=== PATIENT | female | born 1955 | race Caucasian/White ===

== ENCOUNTER 2018-12-30 15:04 | Outpatient (CLI) | payer OTHER | END 2018-12-30 15:05 | disposition critical access hospital (66) | LOC: EMS 15:04 | PROVIDERS: ATTEND Surgery | DX: R10.10 Upper abdominal pain, unspecified (principal) | CPT/HCPCS: A0425; A0427 ==

== ENCOUNTER 2018-12-30 15:49 | Inpatient (IN) | payer OTHER ==
[2018-12-30] MEDS ORDERED: ONDANSETRON 4 MG/2 ML VIAL IVP STA ×2 (16:02→17:28)
[2018-12-30 16:32] LABS: BASOPHILS % (AUTO) 0.4 %; EOSINOPHILS # (AUTO) 0.1 10^3/uL (0.0-0.7); EOSINOPHILS % (AUTO) 0.9 %; HGB - HEMOGLOBIN 13.9 g/dL (12.0-16.0); LYMPHOCYTES # (AUTO) 0.6 10^3/uL (1.5-3.5); LYMPHOCYTES % (AUTO) 8.5 %; MEAN CORPUSCULAR HEMOGLOBIN 30.3 pg (27.0-31.0); MEAN CORPUSCULAR HGB CONC 33.2 g/dL (32.0-36.0); MEAN CORPUSCULAR VOLUME 91.3 fL (81.0-99.0); MONOCYTES # (AUTO) 0.1 10^3/uL (0.0-1.0); MONOCYTES % (AUTO) 1.2 %; NEUTROPHILS # (AUTO) 6.2 10^3/uL (1.5-6.6); NEUTROPHILS % (AUTO) 88.7 %; PLT - PLATELET COUNT 244 10^3/uL (130-450); RED BLOOD COUNT 4.59 10^6/uL (4.20-5.40); RED CELL DISTRIBUTION WIDTH 13.5 % (12.0-15.0)
--- NOTE | 2018-12-30 16:42 | XRAY Report ---
Reason: chest pain Procedure Date: 12/30/2018 Accession Number: [id number] / [id number] Procedure: XR - Chest 1 View X-Ray CPT Code: 99546 FULL RESULT: EXAM: CHEST RADIOGRAPHY EXAM DATE: 12/30/2018 04:20 PM. CLINICAL HISTORY: Chest pain. COMPARISON: None. TECHNIQUE: 1 view. FINDINGS: Lungs/Pleura: No focal opacities evident. No pleural effusion. No pneumothorax. Mediastinum: Within exam limitations, the cardiomediastinal contour is normal. Other: None. IMPRESSION: No acute intrathoracic plain film abnormality. RADIA
[2018-12-30 16:45] LABS: ALBUMIN 3.8 g/dL (3.2-5.5); ALBUMIN/GLOBULIN RATIO 1.3 (1.0-2.2); BILIRUBIN,TOTAL 1.7 mg/dL (0.2-1.0); CALCIUM 8.8 mg/dL (8.5-10.3); CREATININE 0.9 mg/dL (0.4-1.0); TOTAL PROTEIN 6.8 g/dL (6.7-8.2)
--- NOTE | 2018-12-30 17:19 | ED Physician Documentation ---
PD HPI CHEST PAIN - Stated complaint Stated Complaint: ABD PX - Chief complaint Chief Complaint: Abd Pain - History obtained from History obtained from: Patient - History of Present Illness Timing - onset: Today Timing - onset during: Light activity Timing - duration: Hours Timing - details: Abrupt onset, Still present Quality: Sharp, Pain Location: Substernal, Epigastric Radiation: Back Improved by: Rest Associated symptoms: Nausea, Vomiting Similar symptoms before: Has not had sx before Recently seen: Not recently seen - Additional information Additional information: 63-year-old female with a history of hiatal hernia has developed acute chest pain today radiating to her back and in the epigastrium. Review of Systems Constitutional: reports: Chills. denies: Fever Eyes: denies: Decreased vision Ears: denies: Ear pain Nose: denies: Congestion Throat: denies: Sore throat Cardiac: reports: Chest pain / pressure. denies: Palpitations, Pedal edema, Calf pain Respiratory: denies: Dyspnea, Cough GI: reports: Abdominal Pain, Nausea, Vomiting : denies: Dysuria, Frequency PD PAST MEDICAL HISTORY - Past Medical History Past Medical History: Yes Cardiovascular: Hypertension - Past Surgical History Past Surgical History: Yes General: Hiatal hernia repair - Allergies Allergies/Adverse Reactions: Allergies Allergy/AdvReac Type Severity Reaction Status Date / Time metronidazole [From Flagyl] Allergy Anaphylaxis Verified 12/30/18 16:01 Penicillins Allergy Anaphylaxis Verified 12/30/18 16:01 - Social History Does the pt smoke?: No Smoking Status: Never smoker Does the pt drink ETOH?: No Does the pt have substance abuse?: No - Immunizations Immunizations are current?: Yes - POLST Patient has POLST: No PD ED PE NORMAL - Vitals Vital signs reviewed: Yes (hypertensive mild ) - General General: Alert and oriented X 3, Well developed/nourished - HEENT HEENT: Atraumatic, PERRL, EOMI - Neck Neck: Supple, no meningeal sign - Cardiac Cardiac: RRR, No murmur - Respiratory Respiratory: No respiratory distress, Clear bilaterally - Abdomen Abdomen: Soft, Other (RUQ tenderness to palpation and epigastric tenderness. ) - Back Back: No CVA TTP, No spinal TTP - Derm Derm: Normal color, Warm and dry, No rash - Extremities Extremities: No deformity, No edema - Neuro Neuro: Alert and oriented X 3, zoning technician 2-12 intact, No motor deficit, No sensory deficit, Normal speech Eye Opening: Spontaneous Motor: Obeys Commands Verbal: Oriented GCS Score: 15 - Psych Psych: Normal mood, Normal affect Results - Vitals Vitals: Vital Signs - 24 hr 12/30/18 12/30/18 12/30/18 16:01 16:08 18:25 Temperature 36.6 C 36.6 C Heart Rate 88 88 106 H Respiratory 16 16 26 H Rate Blood Pressure 114/87 H 114/87 H 119/62 O2 Saturation 97 97 100 Oxygen O2 Source Room air - EKG (time done) 1614 Rate: Rate (enter#) (91) Rhythm: NSR Intervals: RBBB Compare to prior EKG: Old EKG unavailable Computer interpretation: Agree with computer - Labs Labs: Laboratory Tests 12/30/18 12/30/18 12/30/18 16:25 16:25 16:25 WBC 7.0 RBC 4.59 Hgb 13.9 Hct 41.9 MCV 91.3 MCH 30.3 MCHC 33.2 RDW 13.5 Plt Count 244 MPV 9.0 Neut # (Auto) 6.2 Lymph # (Auto) 0.6 L [place] # (Auto) 0.1 Eos # (Auto) 0.1 Baso # (Auto) 0.0 Absolute Nucleated RBC 0.00 Nucleated RBC % 0.0 Sodium 139 Potassium 3.0 L Chloride 103 Carbon Dioxide 26 Anion Gap 10.0 BUN 19 Creatinine 0.9 Estimated GFR (MDRD) 63 L Glucose 132 H Calcium 8.8 Total Bilirubin 1.7 H AST 205 H ALT 157 H Alkaline Phosphatase 80 Troponin I < 0.04 Total Protein 6.8 Albumin 3.8 Globulin 3.0 Albumin/Globulin Ratio 1.3 Lipase 63 H Urine Color Urine Clarity Urine pH Ur Specific [place] Urine Protein Urine Glucose (UA) Urine Ketones Urine Occult Blood Urine Nitrite Urine Bilirubin Urine Urobilinogen Ur Leukocyte Esterase Ur Microscopic Review Urine Culture Comments 12/30/18 17:10 WBC RBC Hgb Hct MCV MCH MCHC RDW Plt Count MPV Neut # (Auto) Lymph # (Auto) [place] # (Auto) Eos # (Auto) Baso # (Auto) Absolute Nucleated RBC Nucleated RBC % Sodium Potassium Chloride Carbon Dioxide Anion Gap BUN Creatinine Estimated GFR (MDRD) Glucose Calcium Total Bilirubin AST ALT Alkaline Phosphatase Troponin I Total Protein Albumin Globulin Albumin/Globulin Ratio Lipase Urine Color YELLOW Urine Clarity CLEAR Urine pH 7.0 Ur Specific [place] 1.015 Urine Protein NEGATIVE Urine Glucose (UA) NEGATIVE Urine Ketones NEGATIVE Urine Occult Blood NEGATIVE Urine Nitrite NEGATIVE Urine Bilirubin NEGATIVE Urine Urobilinogen 2 H Ur Leukocyte Esterase NEGATIVE Ur Microscopic Review NOT INDICATED Urine Culture Comments NOT INDICATED - Rads (name of study) chest Radiology: Prelim report reviewed (Impression: No acute intrathoracic plain film abnormality.), EMP read indepedently, See rad report gb u/s Radiology: Prelim report reviewed (Impression: 1. Gallbladder wall thickening and positive Cedillo sign without cholelithiasis. Findings may represent a calculus cholecystitis versus a wall thickening secondary to underlying liver disease. Consider HIDA scan if indicated. Hepato-steatosis.), EMP read indepedently, See rad report PD MEDICAL DECISION MAKING - ED course Complexity details: reviewed results, re-evaluated patient, considered differential, d/w patient ED course: 63-year-old female with acute onset of abdominal pain today has a sick appearing gallbladder which is very painful with a markedly swollen gallbladder wall. Dr. Azul is consulted in the case and the patient is admitted under her care. Departure - Departure Disposition: 66 [facility] DC/Xfer Clinical Impression: Cholecystitis Condition: Fair
[2018-12-30] MEDS ORDERED: SODIUM CHLORIDE 0.9% 1,000 ML IV ONE (17:28)
[2018-12-30 17:31] LABS: BILIRUBIN,URINE NEGATIVE (NEGATIVE); GLUCOSE, URINE (UA) NEGATIVE (NEGATIVE); KETONES,URINE (UA) NEGATIVE (NEGATIVE); LEUKOCYTE ESTERASE, URINE NEGATIVE (NEGATIVE); NITRITE,URINE NEGATIVE (NEGATIVE); OCCULT BLOOD,URINE NEGATIVE (NEGATIVE); PROTEIN,URINE NEGATIVE (NEGATIVE); UROBILINOGEN,URINE 2 E.U./dL (NORMAL)
[2018-12-30 17:33] LABS: CLARITY,URINE CLEAR (CLEAR)
--- NOTE | 2018-12-30 19:05 | Ultrasound Report ---
Reason: RUQ pain Procedure Date: 12/30/2018 Accession Number: [id number] / [id number] Procedure: US - Abdomen Limited CPT Code: FULL RESULT: EXAM: ABDOMEN ULTRASOUND LIMITED, RUQ EXAM DATE: 12/30/2018 05:50 PM. CLINICAL HISTORY: RUQ pain. COMPARISON: 11/16/2013. TECHNIQUE: Real-time scanning was performed with static images obtained. FINDINGS: Limited exam secondary due to patient guarding secondary to pain. Liver: Increased in echotexture. 17.5 cm. Hepatic cyst measures 3.9 x 3.1 cm. Main portal vein flow: Hepatopetal. Gallbladder: No stones. Wall measures 6-8 mm. Positive Cedillo's sign. Biliary System: CBD measures 4 mm. No intrahepatic or extrahepatic ductal dilatation. Other: Right kidney measures 10.9 cm, without evidence for hydronephrosis. IMPRESSION: 1. Gallbladder wall thickening and positive Cedillo's sign without cholelithiasis. Findings may represent acalculous cholecystitis versus wall thickening secondary to underlying liver disease. Consider HIDA scan if indicated. 2. Hepatosteatosis. RADIA The call report notification system was initiated by Dr. Rena Caban at 06:59 PM on 12/30/2018. The above call report findings were discussed with Ritesh Post by Dr. Rena Caban at 07:03 PM on 12/30/2018.
--- NOTE | 2018-12-30 19:30 | HISTORY & PHYSICAL EXAMINATION ---
Chief Complaint - Chief Complaint Chief Complaint: Chest pain and abdominal pain Abdominal Pain HPI - Admitted From Admitted from: ED - History Obtained From Records Reviewed: RN notes reviewed History obtained from: Patient, Family Exam limitations: No limitations - History of Present Illness Pain/Problem Location Description: Mid epigastric region and chest Severity at the worst: Moderate, Severe Pain Quality: Sharp, Cramping Context-Pain started w/: Exertion Timing: Abrupt onset Duration: Hours: Improved with: Nothing Worsened by: Nothing HPI Comment/Other: Anaid is a daron 63-year-old lady who presented to the emergency room with her family complaining of chest and abdominal pain. She reports that it started suddenly today while she was doing some housework. She has had episodes very similar to this in the past. She says that somewhere even this strong. She is always been told in the past that the pain was related to her hiatal hernia.She denies any yellow skin or eyes. She denies any sick contacts. PMH/PSH - Past Medical History Cardiovascular: positive: Hypertension GI: positive: GERD, Hiatal hernia MRSA Hx?: No - Past Surgical History General: positive: Hiatal hernia repair Social & Family Hx - Living Situation Living Arrangement: At home - Social History Does the pt smoke?: No Smoking Status: Never smoker Does the pt drink ETOH?: No Does the pt have substance abuse?: No - POLST Patient has POLST: No Meds/Allgy - Home Medications Home Medications: Ambulatory Orders Medication Instructions Recorded Confirmed Atorvastatin [Lipitor] 40 mg 12/30/18 Calcium Carbonate/Vitamin D3 1 tab PO BID 12/30/18 12/31/18 [Calcium 600-Vit D3 400 Tablet] Famotidine 20 mg PO DAILY 12/30/18 12/31/18 Hydrochlorothiazide 25 mg PO DAILY 12/30/18 12/31/18 Propranolol [Inderal] 20 mg PO BID 12/30/18 12/30/18 buPROPion [Wellbutrin Xl] 450 mg PO DAILY 12/30/18 12/30/18 busPIRone [Buspar] 10 mg PO BID 12/30/18 12/30/18 - Allergies Allergies/Adverse Reactions: Allergies Allergy/AdvReac Type Severity Reaction Status Date / Time metronidazole [From Flagyl] Allergy Anaphylaxis Verified 12/30/18 16:01 Penicillins Allergy Anaphylaxis Verified 12/30/18 16:01 Review of Systems - Constitutional Constitutional: reports: Diaphoresis. denies: Fever, Chills, Night sweats - Eyes Eyes: denies: Pain, Irritation, Blurred vision - Ears, Nose & Throat Ears, Nose & Throat: denies: Nasal discharge, Sore throat - Cardiovascular Cariovascular: denies: Irregular heart rate, Chest pain, Lightheadedness - Respiratory Respiratory: denies: Cough, Wheezing, Orthopnea - Gastrointestinal Gastrointestinal: reports: Abdominal pain, Nausea. denies: Black stools, Bloody stools, Coffee grounds emesis - Genitourinary Genitourinary: denies: Dysuria, Frequency, Urgency - Integumentary Integumentary: denies: Rash, Pruritis - Endocrine Endocrine: denies: Intolerance to cold, Intolerance to heat - Hematologic/Lymphatic Hematologic/Lymphatic: denies: Anemia, Bruising, Petechiae, Blood clots - All Other Systems All Other Systems: reports: Reviewed and negative Exam - Vital Signs Reviewed Vital Signs: Yes Vital Signs: Vital Signs x48h Temp Pulse Resp BP Pulse Ox 12/30/18 18:25 106 H 26 H 119/62 100 12/30/18 16:08 36.6 C 88 16 114/87 H 97 12/30/18 16:01 36.6 C 88 16 114/87 H 97 - Physical Exam General Appearance: positive: Moderate distress Eyes Bilateral: positive: Normal inspection, PERRL, EOMI, No lid inflammation ENT: positive: ENT inspection nml, No signs of dehydration. negative: Oral lesions Neck: positive: Nml inspection, No JVD, Trachea midline Respiratory: positive: Chest non-tender, Breath sounds nml. negative: Wheezes Cardiovascular: positive: Regular rate & rhythm, No murmur. negative: JVD present Peripheral Pulses: positive: 1+ Abdomen: positive: Nml bowel sounds, Tenderness, Guarding, Other (Tender to palpation in the RUQ. Palpation of the RUQ causes dry heaving.) Back: negative: CVA tenderness (R), CVA tenderness (L) Skin: positive: Color nml, No rash Neurologic/Psychiatric: positive: Oriented x3, CN's nml (2-12) Results - Lab Results Lab results reviewed: Yes Fish Bones: 12/31/18 06:30 12/31/18 06:30 Other Lab Results: Lab Results x24hrs 12/30/18 12/30/18 12/30/18 Range/Units 17:10 16:25 16:25 WBC (4.8-10.8) x10^3/uL RBC (4.20-5.40) 10^6/uL Hgb (12.0-16.0) g/dL Hct (37.0-47.0) % MCV (81.0-99.0) fL MCH (27.0-31.0) pg MCHC (32.0-36.0) g/dL RDW (12.0-15.0) % Plt Count (130-450) 10^3/uL MPV (7.9-10.8) fL Neut # (Auto) (1.5-6.6) 10^3/uL Lymph # (Auto) (1.5-3.5) 10^3/uL [place] # (Auto) (0.0-1.0) 10^3/uL Eos # (Auto) (0.0-0.7) 10^3/uL Baso # (Auto) (0.0-0.1) 10^3/uL Absolute Nucleated RBC x10^3/uL Nucleated RBC % /100WBC Sodium 139 (135-145) mmol/L Potassium 3.0 L (3.5-5.0) mmol/L Chloride 103 (101-111) mmol/L Carbon Dioxide 26 (21-32) mmol/L Anion Gap 10.0 (6-13) BUN 19 (6-20) mg/dL Creatinine 0.9 (0.4-1.0) mg/dL Estimated GFR (MDRD) 63 L (>89) Glucose 132 H (70-100) mg/dL Calcium 8.8 (8.5-10.3) mg/dL Total Bilirubin 1.7 H (0.2-1.0) mg/dL AST 205 H (10-42) IU/L ALT 157 H (10-60) IU/L Alkaline Phosphatase 80 (42-121) IU/L Troponin I < 0.04 (<0.49) ng/mL Total Protein 6.8 (6.7-8.2) g/dL Albumin 3.8 (3.2-5.5) g/dL Globulin 3.0 (2.1-4.2) g/dL Albumin/Globulin Ratio 1.3 (1.0-2.2) Lipase 63 H (22-51) U/L Urine Color YELLOW Urine Clarity CLEAR (CLEAR) Urine pH 7.0 (5.0-7.5) PH Ur Specific [place] 1.015 (1.002-1.030) Urine Protein NEGATIVE (NEGATIVE) mg/dL Urine Glucose (UA) NEGATIVE (NEGATIVE) mg/dL Urine Ketones NEGATIVE (NEGATIVE) mg/dL Urine Occult Blood NEGATIVE (NEGATIVE) Urine Nitrite NEGATIVE (NEGATIVE) Urine Bilirubin NEGATIVE (NEGATIVE) Urine Urobilinogen 2 H (NORMAL) E.U./dL Ur Leukocyte Esterase NEGATIVE (NEGATIVE) Ur Microscopic Review NOT INDICATED Urine Culture Comments NOT INDICATED 12/30/18 Range/Units 16:25 WBC 7.0 (4.8-10.8) x10^3/uL RBC 4.59 (4.20-5.40) 10^6/uL Hgb 13.9 (12.0-16.0) g/dL Hct 41.9 (37.0-47.0) % MCV 91.3 (81.0-99.0) fL MCH 30.3 (27.0-31.0) pg MCHC 33.2 (32.0-36.0) g/dL RDW 13.5 (12.0-15.0) % Plt Count 244 (130-450) 10^3/uL MPV 9.0 (7.9-10.8) fL Neut # (Auto) 6.2 (1.5-6.6) 10^3/uL Lymph # (Auto) 0.6 L (1.5-3.5) 10^3/uL [place] # (Auto) 0.1 (0.0-1.0) 10^3/uL Eos # (Auto) 0.1 (0.0-0.7) 10^3/uL Baso # (Auto) 0.0 (0.0-0.1) 10^3/uL Absolute Nucleated RBC 0.00 x10^3/uL Nucleated RBC % 0.0 /100WBC Sodium (135-145) mmol/L Potassium (3.5-5.0) mmol/L Chloride (101-111) mmol/L Carbon Dioxide (21-32) mmol/L Anion Gap (6-13) BUN (6-20) mg/dL Creatinine (0.4-1.0) mg/dL Estimated GFR (MDRD) (>89) Glucose (70-100) mg/dL Calcium (8.5-10.3) mg/dL Total Bilirubin (0.2-1.0) mg/dL AST (10-42) IU/L ALT (10-60) IU/L Alkaline Phosphatase (42-121) IU/L Troponin I (<0.49) ng/mL Total Protein (6.7-8.2) g/dL Albumin (3.2-5.5) g/dL Globulin (2.1-4.2) g/dL Albumin/Globulin Ratio (1.0-2.2) Lipase (22-51) U/L Urine Color Urine Clarity (CLEAR) Urine pH (5.0-7.5) PH Ur Specific [place] (1.002-1.030) Urine Protein (NEGATIVE) mg/dL Urine Glucose (UA) (NEGATIVE) mg/dL Urine Ketones (NEGATIVE) mg/dL Urine Occult Blood (NEGATIVE) Urine Nitrite (NEGATIVE) Urine Bilirubin (NEGATIVE) Urine Urobilinogen (NORMAL) E.U./dL Ur Leukocyte Esterase (NEGATIVE) Ur Microscopic Review Urine Culture Comments - Diagnostic Imaging Results Diagnostic Imaging Results: positive: Final report reviewed Diagnostic Imaging Results Comments: Final Report PT NAME: ANAID KHAN MR#: [id number] REG ER/ED AGE: 63 CI DT/TM: 12/30/18 PCP: Alina Belle MD : 1955 ATT: SEX: F ORD: Ritesh rizvi MD EXAM: [id number] US/ABDLTD ([id number]) Reason: RUQ pain Procedure Date: 12/30/2018 Accession Number: [id number] / [id number] Procedure: US - Abdomen Limited CPT Code: FULL RESULT: EXAM: ABDOMEN ULTRASOUND LIMITED, RUQ EXAM DATE: 12/30/2018 05:50 PM. CLINICAL HISTORY: RUQ pain. COMPARISON: 11/16/2013. TECHNIQUE: Real-time scanning was performed with static images obtained. FINDINGS: Limited exam secondary due to patient guarding secondary to pain. Liver: Increased in echotexture. 17.5 cm. Hepatic cyst measures 3.9 x 3.1 cm. Main portal vein flow: Hepatopetal. Gallbladder: No stones. Wall measures 6-8 mm. Positive Cedillo's sign. Biliary System: CBD measures 4 mm. No intrahepatic or extrahepatic ductal dilatation. Other: Right kidney measures 10.9 cm, without evidence for hydronephrosis. IMPRESSION: 1. Gallbladder wall thickening and positive Cedillo's sign without cholelithiasis. Findings may represent acalculous cholecystitis versus wall thickening secondary to underlying liver disease. Consider HIDA scan if indicated. 2. Hepatosteatosis. RADIA The call report notification system was initiated by Dr. Rena Caban at 06:59 PM on 12/30/2018. The above call report findings were discussed with Ritesh Post by Dr. Rena Caban at 07:03 PM on 12/30/2018. Entry Level Accountant: Reading Radiologist: Rena Caban MD Releasing Radiologist: Rena Caban MD Released Date Time: 12/30/181899 Report 99 cc: Alina Belle MD; Ritesh Post MD Final Report PT NAME: ANAID KHAN MR#: [id number] PRE ER/ED AGE: 63 CI DT/TM: 12/30/18 PCP: : 1955 ATT: SEX: F ORD: Ritesh rizvi MD EXAM: XR/[id number] ([id number]) Reason: chest pain Procedure Date: 12/30/2018 Accession Number: [id number] / [id number] Procedure: XR - Chest 1 View X-Ray CPT Code: 74451 FULL RESULT: EXAM: CHEST RADIOGRAPHY EXAM DATE: 12/30/2018 04:20 PM. CLINICAL HISTORY: Chest pain. COMPARISON: None. TECHNIQUE: 1 view. FINDINGS: Lungs/Pleura: No focal opacities evident. No pleural effusion. No pneumothorax. Mediastinum: Within exam limitations, the cardiomediastinal contour is normal. Other: None. IMPRESSION: No acute intrathoracic plain film abnormality. RADIA Entry Level Accountant: Reading Radiologist: Arnav Majano MD Releasing Radiologist: Arnav Majano MD Released Date Time: 12/30/18 1637 - EKG Results EKG Interpreted Independently: No Impression/Plan - Problem List Problem List: Acute cholecystitis in the setting of a fairly healthy and active 63-year-old lady.She will be admitted overnight for IV hydration and antibiotic therapy. We will check labs again in the morning and plan to remove her gallbladder electively tomorrow.These note that this H&P was started on the and finished on the secondary to a computer system problem.
[2018-12-30] MEDS ORDERED: PROMETHAZINE 25 MG/1 ML VIAL IM PRN (21:14)
[2018-12-30] MEDS ORDERED: diphenhydrAMINE INJ 50 MG/ML VIAL IVP PRN (21:16)
[2018-12-30] MEDS ORDERED: SODIUM CHLORIDE FLUSH 0.9% 10 ML SYRINGE ONE (21:34)
[2018-12-30] MEDS: DEXTROSE 5%-0.9% NACL 1,000 ML IV SCH (22:28)
[2018-12-30] MEDS: MEROPENEM 500 MG in SODIUM CHLORIDE 0.9% 50 ML IV SCH (22:29)
[2018-12-31] MEDS: HYDROmorphone PCA 20MG/100ML IV PRN (02:21)
[2018-12-31] MEDS: ONDANSETRON 4 MG/2 ML VIAL IVP PRN ×2 (02:32→10:19)
[2018-12-31] MEDS: MEROPENEM 500 MG in SODIUM CHLORIDE 0.9% 50 ML IV SCH ×3 (06:01→21:15)
[2018-12-31] MEDS: PANTOPRAZOLE 40 MG VIAL IVP SCH (06:31)
[2018-12-31 06:51] LABS: BASOPHILS % (AUTO) 0.2 %; EOSINOPHILS % (AUTO) 0.1 %; HGB - HEMOGLOBIN 12.3 g/dL (12.0-16.0); LYMPHOCYTES # (AUTO) 0.5 10^3/uL (1.5-3.5); LYMPHOCYTES % (AUTO) 4.4 %; MEAN CORPUSCULAR HEMOGLOBIN 30.1 pg (27.0-31.0); MEAN CORPUSCULAR HGB CONC 33.2 g/dL (32.0-36.0); MEAN CORPUSCULAR VOLUME 90.7 fL (81.0-99.0); MEAN PLATELET VOLUME 9.1 fL (7.9-10.8); MONOCYTES # (AUTO) 0.6 10^3/uL (0.0-1.0); MONOCYTES % (AUTO) 4.7 %; NEUTROPHILS # (AUTO) 11.2 10^3/uL (1.5-6.6); NEUTROPHILS % (AUTO) 90.4 %; PLT - PLATELET COUNT 208 10^3/uL (130-450); RED BLOOD COUNT 4.08 10^6/uL (4.20-5.40); RED CELL DISTRIBUTION WIDTH 13.9 % (12.0-15.0); WHITE BLOOD COUNT 12.4 x10^3/uL (4.8-10.8)
[2018-12-31 07:13] LABS: ALBUMIN 3.4 g/dL (3.2-5.5); ALBUMIN/GLOBULIN RATIO 1.1 (1.0-2.2); BILIRUBIN,TOTAL 3.4 mg/dL (0.2-1.0); CALCIUM 8.2 mg/dL (8.5-10.3); CREATININE 0.9 mg/dL (0.4-1.0); TOTAL PROTEIN 6.5 g/dL (6.7-8.2)
--- NOTE | 2018-12-31 07:24 | ANESTHESIA ---
Pre-Anesthesia VS, & Labs - Diagnosis acute cholecystitis - Procedure lap mckay Vital Signs: Temp Pulse Resp BP Pulse Ox 37.1 C 103 H 16 103/62 98 12/31/18 05:13 12/31/18 05:13 12/31/18 06:00 12/31/18 05:13 12/31/18 05:13 Height 5 ft 5 in Weight (kg) 74.5 kg Body Mass Index 27.3 - NPO >8 hours - Is Patient ?: No - Lab Results Current Lab Results: Laboratory Tests 12/31/18 06:30: Sodium 140, Potassium 3.3 L, Chloride 101, Carbon Dioxide 28, Anion Gap 11.0, BUN 14, Creatinine 0.9, Estimated GFR (MDRD) 63 L, Glucose 125 H , Calcium 8.2 L, Total Bilirubin 3.4 H, AST 341 H, ALT 441 H, Alkaline Phosphatase 81, Total Protein 6.5 L, Albumin 3.4, Globulin 3.1, Albumin/Globulin Ratio 1.1 12/31/18 06:30: WBC 12.4 H, RBC 4.08 L, Hgb 12.3, Hct 37.0, MCV 90.7, MCH 30.1, MCHC 33.2, RDW 13.9, Plt Count 208, MPV 9.1, Neut # (Auto) 11.2 H, Lymph # (Auto) 0.5 L, [place] # (Auto) 0.6, Eos # (Auto) 0.0, Baso # (Auto) 0.0, Absolute Nucleated RBC 0.00, Nucleated RBC % 0.0 12/30/18 16:25: Troponin I < 0.04 12/30/18 16:25: Sodium 139, Potassium 3.0 L, Chloride 103, Carbon Dioxide 26, Anion Gap 10.0, BUN 19, Creatinine 0.9, Estimated GFR (MDRD) 63 L, Glucose 132 H , Calcium 8.8, Total Bilirubin 1.7 H, AST 205 H, ALT 157 H, Alkaline Phosphatase 80, Total Protein 6.8, Albumin 3.8, Globulin 3.0, Albumin/Globulin Ratio 1.3, Lipase 63 H 12/30/18 16:25: WBC 7.0, RBC 4.59, Hgb 13.9, Hct 41.9, MCV 91.3, MCH 30.3, MCHC 33.2, RDW 13.5, Plt Count 244, MPV 9.0, Neut # (Auto) 6.2, Lymph # (Auto) 0.6 L, [place] # (Auto) 0.1, Eos # (Auto) 0.1, Baso # (Auto) 0.0, Absolute Nucleated RBC 0.00, Nucleated RBC % 0.0 Fish Bones: 12/31/18 06:30 12/31/18 06:30 Home Medications and Allergies Home Medications: Ambulatory Orders Atorvastatin [Lipitor] 40 mg 12/30/18 Calcium Carbonate/Vitamin D3 [Calcium 600-Vit D3 400 Tablet] DAILY 12/30/18 Famotidine 20 mg PO 12/30/18 Hydrochlorothiazide 25 mg PO 12/30/18 Propranolol [Inderal] 20 mg PO BID 12/30/18 buPROPion [Wellbutrin Xl] 450 mg PO DAILY 12/30/18 busPIRone [Buspar] 10 mg PO BID 12/30/18 Active Medications Diphenhydramine HCl (Benadryl Inj) 25 mg IVP Q6H PRN PRN Reason: ITCHING Hydromorphone HCl (Dilaudid Hammer Runner 20mg/100ml) 20 mg IV PRN PRN; Protocol PRN Reason: PAIN Last Admin: 12/31/18 02:21 Dose: 20 mg Dextrose/Sodium Chloride (D5ns) 1,000 mls @ 100 mls/hr IV .Q10H [facility] Last Admin: 12/30/18 22:28 Dose: 100 mls/hr Meropenem 500 mg/ Sodium (Chloride) 50 mls @ 100 mls/hr IV Q8H [facility] Last Infusion: 12/31/18 06:31 Dose: Infused Ondansetron HCl (Zofran Inj) 4 mg IVP Q6HR PRN PRN Reason: Nausea / Vomiting Last Admin: 12/31/18 02:32 Dose: 4 mg Pantoprazole Sodium (Protonix) 40 mg IVP QDAC [facility] Last Admin: 12/31/18 06:31 Dose: 40 mg Promethazine HCl (Phenergan Inj) 25 mg IM Q6HR PRN PRN Reason: Nausea / Vomiting Atorvastatin [Lipitor] 40 mg 12/30/18 Calcium Carbonate/Vitamin D3 [Calcium 600-Vit D3 400 Tablet] DAILY 12/30/18 Famotidine 20 mg PO 12/30/18 Hydrochlorothiazide 25 mg PO 12/30/18 Propranolol [Inderal] 20 mg PO BID 12/30/18 buPROPion [Wellbutrin Xl] 450 mg PO DAILY 12/30/18 busPIRone [Buspar] 10 mg PO BID 12/30/18 Allergies/Adverse Reactions: Allergies Allergy/AdvReac Type Severity Reaction Status Date / Time metronidazole [From Flagyl] Allergy Anaphylaxis Verified 12/30/18 16:01 Penicillins Allergy Anaphylaxis Verified 12/30/18 16:01 Anes History & Medical History - Medical History Cardiovascular: reports: Other (history of palpitations, right BBB) Pulmonary: reports: Sleep apnea (does not use cpap) Gastrointestinal: reports: GERD, Hiatal hernia Urinary: reports: None Neuro: reports: None Musculoskeletal: reports: Osteoarthritis, Fibromyalgia, Chronic back pain Endocrine/Autoimmune: reports: None Blood Disorders: reports: None Skin: reports: None Smoking Status: Former smoker (Quit 20 years ago) Psychosocial: reports: Depression, Anxiety, Alcohol (4 drinks/week) Other Past Medical History: palpitations, right bundle block, awaiting sleep study retest, irritable bowel syndrome, stress incontinence, borderline personality in therapy - Surgical History General: Appendectomy Eyes Ears Nose Throat (EENT): Tonsil/Adenoidectomy Orthopedic: Other (right wrist ligament repair) Results - EKG Results EKG Comparison: Reviewed EKG Exam General: Alert, Oriented x3, Cooperative, No acute distress Dental: WNL, Other (front tooth implant) Mouth Openin Fingerbreadth Neck Mobility: Normal Mallampati classification: III Thyromental Distance: 4-6 cm Respiratory: Lungs clear, Normal breath sounds, No respiratory distress, No acc essory muscle use Cardiovascular: Regular rate, Normal S1, Normal S2, No murmurs Mental/Cognitive Status: Alert/Oriented X3, Normal for patient Plan Anesthesia Type: General Consent for Procedure(s) Verified and Reviewed: Yes Code Status: Attempt Resuscitation ASA classification: 2-Mild systemic disease Is this case an emergency?: No
[2018-12-31] MEDS: DEXTROSE 5%-0.9% NACL 1,000 ML IV SCH ×2 (08:27→17:39)
--- NOTE | 2018-12-31 10:02 | PROVIDER PROGRESS NOTE ---
Subjective - Prog Note Date Prog Note Date: 12/31/18 Prog Note Time: 07:45 - Subjective Pt reports feeling: Improved Subjective: Tasneem says she is feeling a little better this morning. She is quite hungry. She says her pain resolved after being in the emergency room and she really has not been uncomfortable since we admitted her last night.She has had no documented nausea or vomiting. Objective - Vital Signs/Intake & Output Reviewed Vital Signs: Yes Vital Signs: Vital Signs x48h Temp Pulse Resp BP Pulse Ox 12/31/18 07:55 37.0 C 99 18 131/74 H 98 12/31/18 06:00 16 12/31/18 05:20 16 12/31/18 05:13 37.1 C 103 H 16 103/62 98 12/31/18 04:20 16 12/31/18 03:20 16 12/31/18 02:20 16 Intake & Output: Intake & Output 12/28/18 12/29/18 12/30/18 12/31/18 23:59 23:59 23:59 23:59 Intake Total 1050 1398.333 Balance 1050 1398.333 - Objective General Appearance: positive: No acute distress, Alert Eyes Bilateral: positive: Normal inspection, PERRL, EOMI Respiratory: positive: Chest non-tender, Breath sounds nml Cardiovascular: positive: Regular rate & rhythm Abdomen: positive: Nml bowel sounds, Tenderness (Very mild tenderness to palpation of the right upper quadrant.She is now comfortable lying on her right side and says that the urge to vomit that she fell last night every time there was pressure there has now abated.) Extremities: positive: Non-tender, No pedal edema Neurologic/Psychiatric: positive: Oriented x3, CN's nml (2-12) - Lab Results Fish Bones: 12/31/18 06:30 12/31/18 06:30 Other Labs: Lab Results x24hrs 12/31/18 12/31/18 12/30/18 Range/Units 06:30 06:30 17:10 WBC 12.4 H (4.8-10.8) x10^3/uL RBC 4.08 L (4.20-5.40) 10^6/uL Hgb 12.3 (12.0-16.0) g/dL Hct 37.0 (37.0-47.0) % MCV 90.7 (81.0-99.0) fL MCH 30.1 (27.0-31.0) pg MCHC 33.2 (32.0-36.0) g/dL RDW 13.9 (12.0-15.0) % Plt Count 208 (130-450) 10^3/uL MPV 9.1 (7.9-10.8) fL Neut # (Auto) 11.2 H (1.5-6.6) 10^3/uL Lymph # (Auto) 0.5 L (1.5-3.5) 10^3/uL [place] # (Auto) 0.6 (0.0-1.0) 10^3/uL Eos # (Auto) 0.0 (0.0-0.7) 10^3/uL Baso # (Auto) 0.0 (0.0-0.1) 10^3/uL Absolute Nucleated RBC 0.00 x10^3/uL Nucleated RBC % 0.0 /100WBC Sodium 140 (135-145) mmol/L Potassium 3.3 L (3.5-5.0) mmol/L Chloride 101 (101-111) mmol/L Carbon Dioxide 28 (21-32) mmol/L Anion Gap 11.0 (6-13) BUN 14 (6-20) mg/dL Creatinine 0.9 (0.4-1.0) mg/dL Estimated GFR (MDRD) 63 L (>89) Glucose 125 H (70-100) mg/dL Calcium 8.2 L (8.5-10.3) mg/dL Total Bilirubin 3.4 H (0.2-1.0) mg/dL AST 341 H (10-42) IU/L ALT 441 H (10-60) IU/L Alkaline Phosphatase 81 (42-121) IU/L Troponin I (<0.49) ng/mL Total Protein 6.5 L (6.7-8.2) g/dL Albumin 3.4 (3.2-5.5) g/dL Globulin 3.1 (2.1-4.2) g/dL Albumin/Globulin Ratio 1.1 (1.0-2.2) Lipase (22-51) U/L Urine Color YELLOW Urine Clarity CLEAR (CLEAR) Urine pH 7.0 (5.0-7.5) PH Ur Specific [place] 1.015 (1.002-1.030) Urine Protein NEGATIVE (NEGATIVE) mg/dL Urine Glucose (UA) NEGATIVE (NEGATIVE) mg/dL Urine Ketones NEGATIVE (NEGATIVE) mg/dL Urine Occult Blood NEGATIVE (NEGATIVE) Urine Nitrite NEGATIVE (NEGATIVE) Urine Bilirubin NEGATIVE (NEGATIVE) Urine Urobilinogen 2 H (NORMAL) E.U./dL Ur Leukocyte Esterase NEGATIVE (NEGATIVE) Ur Microscopic Review NOT INDICATED Urine Culture Comments NOT INDICATED 12/30/18 12/30/18 12/30/18 Range/Units 16:25 16:25 16:25 WBC 7.0 (4.8-10.8) x10^3/uL RBC 4.59 (4.20-5.40) 10^6/uL Hgb 13.9 (12.0-16.0) g/dL Hct 41.9 (37.0-47.0) % MCV 91.3 (81.0-99.0) fL MCH 30.3 (27.0-31.0) pg MCHC 33.2 (32.0-36.0) g/dL RDW 13.5 (12.0-15.0) % Plt Count 244 (130-450) 10^3/uL MPV 9.0 (7.9-10.8) fL Neut # (Auto) 6.2 (1.5-6.6) 10^3/uL Lymph # (Auto) 0.6 L (1.5-3.5) 10^3/uL [place] # (Auto) 0.1 (0.0-1.0) 10^3/uL Eos # (Auto) 0.1 (0.0-0.7) 10^3/uL Baso # (Auto) 0.0 (0.0-0.1) 10^3/uL Absolute Nucleated RBC 0.00 x10^3/uL Nucleated RBC % 0.0 /100WBC Sodium 139 (135-145) mmol/L Potassium 3.0 L (3.5-5.0) mmol/L Chloride 103 (101-111) mmol/L Carbon Dioxide 26 (21-32) mmol/L Anion Gap 10.0 (6-13) BUN 19 (6-20) mg/dL Creatinine 0.9 (0.4-1.0) mg/dL Estimated GFR (MDRD) 63 L (>89) Glucose 132 H (70-100) mg/dL Calcium 8.8 (8.5-10.3) mg/dL Total Bilirubin 1.7 H (0.2-1.0) mg/dL AST 205 H (10-42) IU/L ALT 157 H (10-60) IU/L Alkaline Phosphatase 80 (42-121) IU/L Troponin I < 0.04 (<0.49) ng/mL Total Protein 6.8 (6.7-8.2) g/dL Albumin 3.8 (3.2-5.5) g/dL Globulin 3.0 (2.1-4.2) g/dL Albumin/Globulin Ratio 1.3 (1.0-2.2) Lipase 63 H (22-51) U/L Urine Color Urine Clarity (CLEAR) Urine pH (5.0-7.5) PH Ur Specific [place] (1.002-1.030) Urine Protein (NEGATIVE) mg/dL Urine Glucose (UA) (NEGATIVE) mg/dL Urine Ketones (NEGATIVE) mg/dL Urine Occult Blood (NEGATIVE) Urine Nitrite (NEGATIVE) Urine Bilirubin (NEGATIVE) Urine Urobilinogen (NORMAL) E.U./dL Ur Leukocyte Esterase (NEGATIVE) Ur Microscopic Review Urine Culture Comments - Diagnostic Imaging Diagnostic Imaging Results: positive: Final report reviewed ABX Reporting Has patient been on IV antibiotics over the past 48 hours?: Yes Assessment/Plan - Problem List (1) Cholecystitis Impression: It appears unfortunately that the patient has choledocholithiasis rather than simple cholecystitis. No gallstones were seen in the gallbladder yesterday but she certainly does have an elevation in her bilirubin that is new overnight. It is encouraging that her pain is improved and this may indicate that she has passed the stone. We will plan to keep her in the hospital and on antibiotics today to protect her from a sending cholangitis. Attempt to obtain an MRCP tomorrow and plan to remove the gallbladder on Tuesday if she does not develop Pancreatitis due to stone passage in the interim.I have discussed these things with the patient and she is in agreement with this plan. She can have clear liquids today but no solid food.
[2018-12-31] MEDS ORDERED: PROMETHAZINE INJ 25 MG in SODIUM CHLORIDE 0.9% 50 ML IV PRN (15:56)
[2018-12-31] MEDS: ACETAMINOPHEN 325 MG TABLET PO PRN ×2 (16:14→23:57)
[2019-01-01] MEDS: DEXTROSE 5%-0.9% NACL 1,000 ML IV SCH (03:46)
[2019-01-01] MEDS ORDERED: SODIUM CHLORIDE FLUSH 0.9% 10 ML SYRINGE ONE ×2 (05:20→05:50)
[2019-01-01] MEDS: MEROPENEM 500 MG in SODIUM CHLORIDE 0.9% 50 ML IV SCH (05:37)
[2019-01-01] MEDS: PANTOPRAZOLE 40 MG VIAL IVP SCH (06:09)
[2019-01-01 06:49] LABS: BASOPHILS % (AUTO) 0.2 %; EOSINOPHILS # (AUTO) 0.1 10^3/uL (0.0-0.7); EOSINOPHILS % (AUTO) 1.1 %; HGB - HEMOGLOBIN 11.8 g/dL (12.0-16.0); LYMPHOCYTES # (AUTO) 0.6 10^3/uL (1.5-3.5); LYMPHOCYTES % (AUTO) 9.8 %; MEAN CORPUSCULAR HEMOGLOBIN 29.6 pg (27.0-31.0); MEAN CORPUSCULAR HGB CONC 32.7 g/dL (32.0-36.0); MEAN CORPUSCULAR VOLUME 90.5 fL (81.0-99.0); MEAN PLATELET VOLUME 9.4 fL (7.9-10.8); MONOCYTES # (AUTO) 0.3 10^3/uL (0.0-1.0); MONOCYTES % (AUTO) 4.7 %; NEUTROPHILS # (AUTO) 5.3 10^3/uL (1.5-6.6); NEUTROPHILS % (AUTO) 83.6 %; PLT - PLATELET COUNT 157 10^3/uL (130-450); RED BLOOD COUNT 3.99 10^6/uL (4.20-5.40); RED CELL DISTRIBUTION WIDTH 14.1 % (12.0-15.0); WHITE BLOOD COUNT 6.4 x10^3/uL (4.8-10.8)
[2019-01-01 07:02] LABS: ALBUMIN 3.1 g/dL (3.2-5.5); ALBUMIN/GLOBULIN RATIO 1.1 (1.0-2.2); BILIRUBIN,TOTAL 1.6 mg/dL (0.2-1.0); CALCIUM 7.8 mg/dL (8.5-10.3); CREATININE 0.8 mg/dL (0.4-1.0); TOTAL PROTEIN 5.9 g/dL (6.7-8.2)
[2019-01-01] MEDS ORDERED: POTASSIUM CHLORIDE INJ 40 MEQ in SODIUM CHLORIDE 0.9% 480 ML IV ONE (07:27)
[2019-01-01] MEDS ORDERED: IOTHALAMATE MEGLUMINE 50 ML VIAL ONE (09:10)
--- NOTE | 2019-01-01 09:11 | PROVIDER PROGRESS NOTE ---
Subjective - Prog Note Date Prog Note Date: 01/01/19 Prog Note Time: 07:40 - Subjective Pt reports feeling: Improved Subjective: Tasneem reports she feels pretty well this morning. She has had 0 pain overnight and generally feels like herself again.She denies any nausea. Objective - Vital Signs/Intake & Output Reviewed Vital Signs: Yes Vital Signs: Vital Signs x48h Temp Pulse Resp BP Pulse Ox 01/01/19 07:45 37.0 C 93 20 130/62 97 01/01/19 06:00 18 01/01/19 05:15 37 C 83 18 128/66 97 01/01/19 04:00 18 01/01/19 02:00 17 Intake & Output: Intake & Output 12/29/18 12/30/18 12/31/18 01/01/19 23:59 23:59 23:59 23:59 Intake Total 1050 3378.333 1581.667 Output Total 725 700 Balance 1050 2653.333 881.667 - Objective General Appearance: positive: No acute distress, Alert Eyes Bilateral: positive: Normal inspection, PERRL, EOMI, No scleral icterus ENT: positive: ENT inspection nml Neck: positive: Nml inspection, Thyroid nml, No JVD, Trachea midline Respiratory: positive: Chest non-tender, No respiratory distress, Breath sounds nml Cardiovascular: positive: Regular rate & rhythm, No murmur, No gallop Abdomen: positive: Nml bowel sounds, No distention, Tenderness (Very minimal tenderness to deep palpation in the right upper quadrant). negative: Guarding, Rebound Back: negative: CVA tenderness (R), CVA tenderness (L) Skin: positive: Color nml Extremities: positive: Non-tender Neurologic/Psychiatric: positive: Oriented x3, CN's nml (2-12) - Lab Results Fish Bones: 01/01/19 06:14 01/01/19 06:14 Other Labs: Lab Results x24hrs 01/01/19 01/01/19 Range/Units 06:14 06:14 WBC 6.4 (4.8-10.8) x10^3/uL RBC 3.99 L (4.20-5.40) 10^6/uL Hgb 11.8 L (12.0-16.0) g/dL Hct 36.1 L (37.0-47.0) % MCV 90.5 (81.0-99.0) fL MCH 29.6 (27.0-31.0) pg MCHC 32.7 (32.0-36.0) g/dL RDW 14.1 (12.0-15.0) % Plt Count 157 (130-450) 10^3/uL MPV 9.4 (7.9-10.8) fL Neut # (Auto) 5.3 (1.5-6.6) 10^3/uL Lymph # (Auto) 0.6 L (1.5-3.5) 10^3/uL [place] # (Auto) 0.3 (0.0-1.0) 10^3/uL Eos # (Auto) 0.1 (0.0-0.7) 10^3/uL Baso # (Auto) 0.0 (0.0-0.1) 10^3/uL Absolute Nucleated RBC 0.00 x10^3/uL Nucleated RBC % 0.0 /100WBC Sodium 141 (135-145) mmol/L Potassium 3.0 L (3.5-5.0) mmol/L Chloride 105 (101-111) mmol/L Carbon Dioxide 24 (21-32) mmol/L Anion Gap 12.0 (6-13) BUN 8 (6-20) mg/dL Creatinine 0.8 (0.4-1.0) mg/dL Estimated GFR (MDRD) 72 L (>89) Glucose 102 H (70-100) mg/dL Calcium 7.8 L (8.5-10.3) mg/dL Total Bilirubin 1.6 H (0.2-1.0) mg/dL AST 119 H (10-42) IU/L ALT 272 H (10-60) IU/L Alkaline Phosphatase 79 (42-121) IU/L Total Protein 5.9 L (6.7-8.2) g/dL Albumin 3.1 L (3.2-5.5) g/dL Globulin 2.8 (2.1-4.2) g/dL Albumin/Globulin Ratio 1.1 (1.0-2.2) ABX Reporting Has patient been on IV antibiotics over the past 48 hours?: Yes Assessment/Plan - Problem List (1) Cholecystitis Impression: Tasneem appears to have passed a common duct stone over the evening. She was scheduled to have an MRCP this morning at 930 but I have canceled the study in favor of surgical intervention. We will proceed to the operating room for lap scopic cholecystectomy with intraoperative cholangiogram. I have discussed the risks and benefits of the procedure and she is expressed both in understanding of the risks and a desire to complete the procedure today.
[2019-01-01] MEDS ORDERED: LIDOCAINE MPF 1%-EPI 1:200000 30 ML VIAL ONE (09:21)
[2019-01-01] MEDS ORDERED: BUPIVACAINE 0.5% PF 10 ML VIAL ONE (09:22)
--- NOTE | 2019-01-01 09:34 | ANESTHESIA ---
Pre-Anesthesia VS, & Labs - Diagnosis symptomatic cholycystitis - Procedure laparoscopic cholecystectomy Vital Signs: Temp Pulse Resp BP Pulse Ox 37.0 C 93 18 130/62 97 01/01/19 07:45 01/01/19 07:45 01/01/19 08:00 01/01/19 07:45 01/01/19 07:45 Height 5 ft 5 in Weight (kg) 74.5 kg Body Mass Index 27.3 - NPO >8 hours - Is Patient ?: Not Applicable - Lab Results Current Lab Results: Laboratory Tests 01/01/19 06:14: Sodium 141, Potassium 3.0 L, Chloride 105, Carbon Dioxide 24, Anion Gap 12.0, BUN 8, Creatinine 0.8, Estimated GFR (MDRD) 72 L, Glucose 102 H, Calcium 7.8 L, Total Bilirubin 1.6 H, AST 119 H, ALT 272 H, Alkaline Phosphatase 79, Total Protein 5.9 L, Albumin 3.1 L, Globulin 2.8, Albumin/Globulin Ratio 1.1 01/01/19 06:14: WBC 6.4, RBC 3.99 L, Hgb 11.8 L, Hct 36.1 L, MCV 90.5, MCH 29.6, MCHC 32.7, RDW 14.1, Plt Count 157, MPV 9.4, Neut # (Auto) 5.3, Lymph # (Auto) 0.6 L, [place] # (Auto) 0.3, Eos # (Auto) 0.1, Baso # (Auto) 0.0, Absolute Nucleated RBC 0.00, Nucleated RBC % 0.0 12/31/18 06:30: Sodium 140, Potassium 3.3 L, Chloride 101, Carbon Dioxide 28, Anion Gap 11.0, BUN 14, Creatinine 0.9, Estimated GFR (MDRD) 63 L, Glucose 125 H , Calcium 8.2 L, Total Bilirubin 3.4 H, AST 341 H, ALT 441 H, Alkaline Phosphatase 81, Total Protein 6.5 L, Albumin 3.4, Globulin 3.1, Albumin/Globulin Ratio 1.1 12/31/18 06:30: WBC 12.4 H, RBC 4.08 L, Hgb 12.3, Hct 37.0, MCV 90.7, MCH 30.1, MCHC 33.2, RDW 13.9, Plt Count 208, MPV 9.1, Neut # (Auto) 11.2 H, Lymph # (Auto) 0.5 L, [place] # (Auto) 0.6, Eos # (Auto) 0.0, Baso # (Auto) 0.0, Absolute Nucleated RBC 0.00, Nucleated RBC % 0.0 12/30/18 16:25: Troponin I < 0.04 12/30/18 16:25: Sodium 139, Potassium 3.0 L, Chloride 103, Carbon Dioxide 26, Anion Gap 10.0, BUN 19, Creatinine 0.9, Estimated GFR (MDRD) 63 L, Glucose 132 H , Calcium 8.8, Total Bilirubin 1.7 H, AST 205 H, ALT 157 H, Alkaline Phosphatase 80, Total Protein 6.8, Albumin 3.8, Globulin 3.0, Albumin/Globulin Ratio 1.3, Lipase 63 H 12/30/18 16:25: WBC 7.0, RBC 4.59, Hgb 13.9, Hct 41.9, MCV 91.3, MCH 30.3, MCHC 33.2, RDW 13.5, Plt Count 244, MPV 9.0, Neut # (Auto) 6.2, Lymph # (Auto) 0.6 L, [place] # (Auto) 0.1, Eos # (Auto) 0.1, Baso # (Auto) 0.0, Absolute Nucleated RBC 0.00, Nucleated RBC % 0.0 Fish Bones: 01/01/19 06:14 01/01/19 06:14 Home Medications and Allergies Home Medications: Ambulatory Orders Atorvastatin [Lipitor] 40 mg PO DAILY 12/30/18 Calcium Carbonate/Vitamin D3 [Calcium 600-Vit D3 400 Tablet] 1 tab PO BID 12/30/18 Famotidine 20 mg PO DAILY 12/30/18 Hydrochlorothiazide 25 mg PO DAILY 12/30/18 Propranolol [Inderal] 20 mg PO BID 12/30/18 buPROPion [Wellbutrin Xl] 450 mg PO DAILY 12/30/18 busPIRone [Buspar] 10 mg PO BID 12/30/18 Active Medications Acetaminophen (Tylenol) 650 mg PO Q4HR PRN PRN Reason: Pain or Fever > 38C (100.4F) Last Admin: 12/31/18 23:57 Dose: 650 mg Diphenhydramine HCl (Benadryl Inj) 25 mg IVP Q6H PRN PRN Reason: ITCHING Hydromorphone HCl (Dilaudid Dimensional Inspector 20mg/100ml) 20 mg IV PRN PRN; Protocol PRN Reason: PAIN Last Admin: 12/31/18 02:21 Dose: 20 mg Dextrose/Sodium Chloride (D5ns) 1,000 mls @ 100 mls/hr IV .Q10H [facility] Last Infusion: 01/01/19 09:05 Dose: 30 mls/hr Meropenem 500 mg/ Sodium (Chloride) 50 mls @ 100 mls/hr IV Q8H [facility] Last Infusion: 01/01/19 06:01 Dose: Infused Promethazine HCl 25 mg/ Sodium (Chloride) 51 mls @ 100 mls/hr IV Q6H PRN PRN Reason: Nausea / Vomiting Potassium Chloride 40 meq/ (Sodium Chloride) 500 mls @ 125 mls/hr IV ONCE ONE Stop: 01/01/19 11:26 Last Admin: 01/01/19 08:51 Dose: 125 mls/hr Ondansetron HCl (Zofran Inj) 4 mg IVP Q6HR PRN PRN Reason: Nausea / Vomiting Last Admin: 12/31/18 10:19 Dose: 4 mg Pantoprazole Sodium (Protonix) 40 mg IVP QDAC [facility] Last Admin: 01/01/19 06:09 Dose: 40 mg Promethazine HCl (Phenergan Inj) 25 mg IM Q6HR PRN PRN Reason: Nausea / Vomiting Last Admin: 12/31/18 12:26 Dose: 25 mg Atorvastatin [Lipitor] 40 mg PO DAILY 12/30/18 Calcium Carbonate/Vitamin D3 [Calcium 600-Vit D3 400 Tablet] 1 tab PO BID 12/30/18 Famotidine 20 mg PO DAILY 12/30/18 Hydrochlorothiazide 25 mg PO DAILY 12/30/18 Propranolol [Inderal] 20 mg PO BID 12/30/18 buPROPion [Wellbutrin Xl] 450 mg PO DAILY 12/30/18 busPIRone [Buspar] 10 mg PO BID 12/30/18 Allergies/Adverse Reactions: Allergies Allergy/AdvReac Type Severity Reaction Status Date / Time metronidazole [From Flagyl] Allergy Anaphylaxis Verified 12/30/18 16:01 Penicillins Allergy Anaphylaxis Verified 06/29/19 16:01 Anes History & Medical History - Anesthetic History Anesthesia Complications: reports: No previous complications Family history of Anesthesia Complications: Denies Family history of Malignant Hyperthermia: Denies - Medical History Cardiovascular: reports: Hypertension Pulmonary: reports: Sleep apnea (does not use cpap) Gastrointestinal: reports: GERD, Hiatal hernia Urinary: reports: None Neuro: reports: None Musculoskeletal: reports: Osteoarthritis, Fibromyalgia, Chronic back pain Endocrine/Autoimmune: reports: None Blood Disorders: reports: None Skin: reports: None Smoking Status: Never smoker Psychosocial: reports: Depression, Anxiety, Alcohol (4 drinks/week) Other Past Medical History: palpitations, right bundle block, awaiting sleep study retest, irritable bowel syndrome, stress incontinence, borderline personality in therapy - Surgical History Eyes Ears Nose Throat (EENT): Tonsil/Adenoidectomy Orthopedic: Other (right wrist ligament repair) Exam General: Alert (implant, caps), Oriented x3, Cooperative, No acute distress Dental: WNL, Other (front tooth implant) Mouth Openin Fingerbreadth Mallampati classification: III Thyromental Distance: 4-6 cm Respiratory: Lungs clear, Normal breath sounds, No respiratory distress, No accessory muscle use Cardiovascular: Regular rate, Normal S1, Normal S2, No murmurs Plan Anesthesia Type: General Consent for Procedure(s) Verified and Reviewed: Yes Code Status: Attempt Resuscitation ASA classification: 2-Mild systemic disease Is this case an emergency?: Yes
[2019-01-01] MEDS ORDERED: LACTATED RINGERS 1,000 ML IV ONE (10:02)
[2019-01-01] MEDS ORDERED: SUGAMMADEX 200 MG/2 ML VIAL IVP ONE ×2 (11:12→11:25)
--- NOTE | 2019-01-01 11:13 | OPERATIVE REPORT ---
Operative Report - General Admit Date: 12/30/18 Procedure Date: 01/01/19 Planned Procedure: Laparoscopic Cholecystectomy with Intraoperative Cholangiogram Pre-Op Diagnosis: Cholecystitis and Choledocholithiasis Procedure Performed: Laparoscopic Cholecystectomy with Intraoperative Cholangiogram Post Op Diagnosis: Cholecystitis and Choledocholithiasis - Procedure Note Primary Surgeon: Latha Anesthesia Provider: Jessika Anesthesia Technique: General ET tube, Local Pathology: Gallbladder in formalin to pathology Estimated Blood Loss (mL): 25 Findings: Mildly distended gallbladder with adhesions to the duodenal sweep Complications: None apparent - Other Other Information/Narrative: After obtaining informed consent, the patient is brought to the operating room and placed in the supine position on the operating table. Following successful induction of general endotracheal anesthesia, appropriate padding of all bony prominences, and placement of appropriate monitors, the abdomen is prepped and draped in the standard surgical fashion. A timeout was held per SCOAP protocol. Following infiltration with local anesthetic to create a field block, an in cision was created inferior to the umbilicus and carried down through the skin and subcutaneous tissue to reveal the fascia below. 2-0 Vicryl retention sutures were placed on either side of the midline and the abdomen was entered under direct vision using a 15 blade scalpel. A 10 mm blunt Rangel balloon trocar was then placed in the abdominal cavity and it was insufflated to 15 mmHg pressure. The camera was placed in the abdomen and we immediately visualized a greenish-blue gallbladder in the right upper quadrant. Under direct vision, a second 5 mm trocar was placed in the epigastrium and 2 more in the right upper quadrant. All of these were placed after infiltration with local anesthetic.The patient was placed in reverse Trendelenburg position with left side rotated toward the floor. The fundus of the gallbladder was grasped and elevated up over the liver. This revealed some fairly dense adhesions to the duodenal sweep. These were carefully lysed with a mixture of blunt and sharp dissection. The duodenum itself was carefully checked and did not sustain any injury.We were then able to reveal the cholecysto hepatoduodenal ligament. The cystic duct and artery were carefully defined. The cystic artery was addressed twice proximally and once distally with clips and divided. This left only the cystic duct. The duct was clipped distally and a small merary was created in it so that we could see bile refluxing back through the opening. A cholangiogram was then performed revealing patent intrahepatic and essentially normal extrahepatic biliary ductal system with free flow of the contrast into the duodenum.The Clanza cath was then removed and the duct clipped 3 times proximally once distally and divided. We then liberated the gallbladder from its attachment to the liver using Bovie cautery.It was placed in a bag and removed via the umbilical port with camera in the epigastric position. The camera was replaced in the umbilical position and the entire abdomen and operative site irrigated with warm saline solution it was aspirated free of all fluid. The patient was returned to supine position.The trochars were all removed under direct vision. The abdomen was desufflated. The umbilical incision was closed with interrupted Vicryl suture and Monocryl was placed in the skin. All sponge, needle, and instrument counts were correct at the conclusion of the case. The patient was allowed to awake from anesthesia without difficulty and taken to the postanesthesia care unit in good condition.
--- NOTE | 2019-01-01 11:21 | Discharge Plan ---
Discharge Plan Problem Reviewed?: Yes Disposition: Home, Self Care Condition: Good Prescriptions: Ondansetron Odt [Zofran] 4 mg TL Q6H PRN #10 tablet PRN Reason: Nausea / Vomiting oxyCODONE/ACET 5/325 [Percocet 5 mg/325 mg] 1 each PO Q4-6H #20 tablet Diet: Regular Activity Restrictions: Do not lift more than 5 pounds Shower Restrictions: No Driving Restrictions: Yes (Do not drive while using narcotic pain medications) No Smoking: If you smoke, Please STOP! Call for help. Follow-up with: Alina Belle MD [Primary Care Provider] -
[2019-01-01] MEDS ORDERED: fentaNYL 100 MCG/2 ML VIAL IVP ONE (11:25)
[2019-01-01] MEDS ORDERED: LIDOCAINE-MPF 2% 5 ML VIAL IM ONE (11:25)
[2019-01-01] MEDS ORDERED: PROPOFOL 200 MG/20 ML VIAL IVP ONE (11:25)
[2019-01-01] MEDS ORDERED: ROCURONIUM 50 MG/5 ML VIAL IVP ONE (11:25)
[2019-01-01] MEDS ORDERED: KETOROLAC 30 MG/ML VIAL IVP ONE (11:25)
[2019-01-01] MEDS ORDERED: ONDANSETRON 4 MG/2 ML VIAL IVP ONE (11:25)
--- NOTE | 2019-01-01 11:27 | DISCHARGE SUMMARY ---
"Discharge Summary Admit Date: 12/30/18 Discharge Date: 01/01/19 Discharging Provider: Latha Primary Care Provider: Barbra Condition at Discharge: Good Discharge Disposition: 01 Home, Self Care - DIAGNOSES Admission Diagnoses: Acute Cholecystitis Discharge Diagnoses with Status of Each Condition: Acute cholecystitis and choledocholithiasis - Improved status post cholecystectomy and intraoperative cholangiogram - HPI History of Present Illness: Tasneem is a daron 63 year old lady who presented to the ED complaining of acute onset of abdominal pain. She was found to have acute cholecystitis and was admitted to the hospital. - CONSULTS | PROCEDURES Procedures: Laparoscopic cholecystectomy with intraoperative cholangiogram - HOSPITAL COURSE Hospital Course: Tasneem was admitted to the med/surg unit with plans for cholecystectomy the following day. On the second day of admission, she was noted to have a significantly elevated bilirubin of 3.4. Surgery was delayed to give the patient time to pass the stone and an MRCP was ordered. Over night, she improved and her pain resolved. The next morning, labs revealed a normalizing bilirubin and other liver function studies. She was taken to the operating room this morning for an uneventful laparoscopic cholecystectomy and cholangiogram revealing no evidence of obstruction or filling defect. She is discharged to her home in the care of her family. She will follow up in my office in 2 weeks. - ALLERGIES Allergies/Adverse Reactions: Allergies Allergy/AdvReac Type Severity Reaction Status Date / Time metronidazole [From Flagyl] Allergy Anaphylaxis Verified 12/30/18 16:01 Penicillins Allergy Anaphylaxis Verified 12/30/18 16:01 - MEDICATIONS Home Medications: Ambulatory Orders Medication Instructions Recorded Confirmed Atorvastatin [Lipitor] 40 mg PO DAILY 12/30/18 01/01/19 Calcium Carbonate/Vitamin D3 1 tab PO BID 12/30/18 12/31/18 [Calcium 600-Vit D3 400 Tablet] Famotidine 20 mg PO DAILY 12/30/18 12/31/18 Hydrochlorothiazide 25 mg PO DAILY 12/30/18 12/31/18 Propranolol [Inderal] 20 mg PO BID 12/30/18 12/30/18 buPROPion [Wellbutrin Xl] 450 mg PO DAILY 12/30/18 12/30/18 busPIRone [Buspar] 10 mg PO BID 12/30/18 12/30/18 Ondansetron Odt [Zofran] 4 mg TL Q6H PRN #10 tablet 01/01/19 oxyCODONE/ACET 5/325 [Percocet 5 1 each PO Q4-6H #20 tablet 01/01/19 mg/325 mg] - PHYSICAL EXAM AT DISCHARGE General Appearance: positive: No acute distress, Alert Eyes Bilateral: positive: Normal inspection, PERRL, EOMI, No scleral icterus ENT: positive: ENT inspection nml Neck: positive: Nml inspection, No JVD, Trachea midline Respiratory: positive: Chest non-tender, No respiratory distress, Breath sounds nml Cardiovascular: positive: Regular rate & rhythm, No murmur Abdomen: positive: Nml bowel sounds, No distention, Tenderness (Appropriately tender to palpation postoperatively) Back: positive: CVA tenderness (R), CVA tenderness (L) Skin: positive: Color nml, Warm, Dry Extremities: positive: Non-tender - LABS Result Diagrams: 01/01/19 06:14 01/01/19 06:14 - DIAGNOSTIC IMAGING Diagnostic Imaging Results: Final report reviewed Diagnostic Imaging Results Comments: Nothing else new to review. MRCP was canceled - QUALITY (Female Hip Fx Only) Was patient sent home on osteoporosis medication?: No - FOLLOW UP Follow Up: Dr. Azul in 2 weeks - TIME SPENT Time Spent in Discharge (Minutes): 20"
[2019-01-01] MEDS: HYDROmorphone PCA 20MG/100ML IV PRN (12:00)
--- NOTE | 2019-01-01 12:17 | XRAY Report ---
Reason: CHOLANGIOGRAM Procedure Date: 01/01/2019 Accession Number: [id number] / [id number] Procedure: [place] - OR C-Arm Procedure CPT Code: FULL RESULT: EXAM: FLUOROSCOPIC GUIDANCE EXAM DATE: 01/01/2019 10:58 AM. CLINICAL HISTORY: CHOLANGIOGRAM. COMPARISON: 12/30/2018 abdomen ultrasound. FINDINGS IMPRESSION: Fluoroscopic guidance provided for cholangiogram. Total fluoroscopy time: 0.1 minutes. Number of images: 0. RADIA
[2019-01-01] MEDS ORDERED: oxyCODONE 5 MG TABLET ONE (12:42)
[2019-01-01 12:48] VITALS: BP 120/77
== END 2019-01-01 13:05 | disposition home or self-care (01) | DRG 419 ==
LOC: EDUNIT# → ED 15:49 → MS2 20:51 → ED 21:02
PROVIDERS: ADMIT Surgery; ATTEND Surgery
PROC: 0FT44ZZ Resection of Gallbladder, Percutaneous Endoscopic Approach (ICD-10-PCS; principal; 2018-12-30)
DX: K80.42 Calculus of bile duct with acute cholecystitis without obstruction (principal); I10 Essential (primary) hypertension; K21.9 Gastro-esophageal reflux disease without esophagitis; F32.9 Major depressive disorder, single episode, unspecified; F41.9 Anxiety disorder, unspecified; F60.3 Borderline personality disorder; G47.30 Sleep apnea, unspecified
CPT/HCPCS: 36415; 71045; 76705; 80053; 81003; 83690; 84484; 85025; 93005; 96374; 96375; 99284; A9270; J2185; J7040; J7120; Q9961; 81001; 87086

== ENCOUNTER 2019-07-23 08:51 | Outpatient (CLI) | payer OTHER ==
--- NOTE | 2019-07-23 21:57 | Ultrasound Report ---
Reason: ABD PAIN, NAUSEA Procedure Date: 07/23/2019 Accession Number: [id number] / [id number] Procedure: US - Abdomen Complete CPT Code: Final Report FULL RESULT: EXAM: ABDOMEN ULTRASOUND EXAM DATE: 07/23/2019 09:02 AM. CLINICAL HISTORY: ABD PAIN, NAUSEA. COMPARISON: ABDOMEN LIMITED 12/30/2018 5:50 PM. TECHNIQUE: Real-time scanning was performed with static images obtained. FINDINGS: Liver: The liver parenchyma demonstrates increased echogenicity compared to the prior exam. The right hepatic cyst measures 3.6 x 2.2 x 3.7 cm, previously 3.9 x 3.1 cm. The liver is normal in size measuring 15.5 cm in length. Main portal vein flow: Hepatopetal. Gallbladder: Surgically removed. Biliary System: Common bile duct measures 5 mm. No intrahepatic or extrahepatic ductal dilatation. Pancreas: The pancreas is not well seen. Kidneys: Right: 9.5 cm longitudinally. Normal. No contour-deforming mass, stones, or hydronephrosis. Left: 10.4 cm longitudinally. Normal. No contour-deforming mass, stones, or hydronephrosis. Spleen: 9.4 cm. Normal in size and echotexture. Aorta and Inferior Vena Cava: Within normal limits. Other: No ascites. IMPRESSION: 1. Increased hepatic steatosis, now moderate. 2. Unchanged right hepatic cyst. RADIA
== END 2019-07-23 08:52 | disposition home or self-care (01) ==
LOC: DI 08:51
PROVIDERS: ATTEND Nurse Practitioner Family
DX: K76.0 Fatty (change of) liver, not elsewhere classified (principal); K76.89 Other specified diseases of liver; R10.9 Unspecified abdominal pain; R11.0 Nausea
CPT/HCPCS: 76700

== ENCOUNTER 2019-08-14 11:53 | Outpatient (CLI) | payer OTHER ==
[2019-08-14] MEDS ORDERED: GADOBUTROL 10 MMOL/10 ML VIAL ONE (12:26)
[2019-08-14] MEDS ORDERED: GADOBUTROL 10 MMOL/10 ML VIAL IVP ONE (14:12)
--- NOTE | 2019-08-16 09:05 | MRI Report ---
Reason: PANCREATIC CYST Procedure Date: 08/14/2019 Accession Number: [id number] / [id number] Procedure: MRI - Abdomen W/WO CPT Code: Final Report FULL RESULT: EXAM: MR ABDOMEN WITH AND WITHOUT CONTRAST (MR PANCREAS AND MRCP) EXAM DATE: 08/14/2019 02:14 PM. CLINICAL HISTORY: Pancreas cyst seen on CT. Family history of pancreatic cancer. COMPARISON: ABDOMEN COMPLETE 07/23/2019 9:02 AM. TECHNIQUE: Multiplanar breath-hold T1, T2, and DWI sequences obtained through the pancreas and abdomen on an MR scanner. Dedicated 2D and 3D MRCP sequences obtained through the biliary and pancreatic ducts. Images obtained before and after administration of 8 mL Gadavist intravenous contrast. Multiphase postcontrast sequences obtained through the pancreas. FINDINGS: Lung Bases: Clear as visualized. Liver: Decreased parenchymal signal loss on the out of phase images, indicating steatosis. Two multiloculated T2 hyperintense cysts, measuring 4.1 x 2.7 cm in segment 8/5 (601/28) and an 1.5 x 1.0 cm in segment 5 (601/13). Gallbladder and Bile Ducts: Post cholecystectomy. No intrahepatic or extrahepatic biliary ductal dilatation. The CBD measures 4 mm in diameter. Pancreas: 4 mm T2 hyperintense cystic lesion in the pancreatic neck which communicates with the duct (501/21, 1201/45, 1301/1). The pancreatic duct measures 2 mm in diameter. Spleen: Normal. Kidneys: Normal. No hydronephrosis. Adrenal Glands: Normal. Peritoneal Cavity/GI Tract: Distal colonic diverticulosis. The stomach and visualized small bowel and colon are otherwise unremarkable, without evidence of obstruction or acute inflammatory process. No free fluid or adenopathy. Retroperitoneum: Normal. Vasculature: Conventional hepatic arterial anatomy. The portal and hepatic veins are patent. Bones: No focal marrow signal abnormality. IMPRESSION: 1. Steatotic liver with two multiloculated cysts. 2. No biliary ductal dilatation postcholecystectomy. 3. 4 mm T2 hyperintense cystic lesion in the pancreatic neck which communicates with the pancreatic duct, compatible with a sidebranch IPMN. Follow-up pancreas MRI/MRCP recommended in 1 year per ACR white paper. RADIA
== END 2019-08-14 11:54 | disposition home or self-care (01) ==
LOC: DI 11:53
PROVIDERS: ATTEND Nurse Practitioner Family
DX: K86.2 Cyst of pancreas (principal); K76.0 Fatty (change of) liver, not elsewhere classified; K76.89 Other specified diseases of liver; Z90.49 Acquired absence of other specified parts of digestive tract
CPT/HCPCS: 74183; A9585

== ENCOUNTER 2019-09-04 16:40 | Outpatient (CLI) | payer OTHER ==
--- NOTE | 2019-09-04 19:54 | XRAY Report ---
Reason: COUGH Procedure Date: 09/04/2019 Accession Number: [id number] / [id number] Procedure: XR - Chest 2 View X-Ray CPT Code: 96998 Final Report FULL RESULT: EXAM: CHEST RADIOGRAPHY EXAM DATE: 09/04/2019 04:52 PM. CLINICAL HISTORY: COUGH. Shortness of breath. Symptoms for 2 weeks. COMPARISON: CHEST 1 VIEW 12/30/2018 4:06 PM. TECHNIQUE: 2 views. FINDINGS: Lungs/Pleura: No focal opacities evident. No pleural effusion. No pneumothorax. Normal volumes. Mediastinum: Heart and mediastinal contours are unremarkable. Other: Cholecystectomy clips. IMPRESSION: Normal 2-view chest radiography. RADIA
== END 2019-09-04 16:41 | disposition home or self-care (01) ==
LOC: DI 16:40
PROVIDERS: ATTEND Internal Medicine
DX: R05 Cough (principal)
CPT/HCPCS: 71046

== ENCOUNTER 2019-11-01 13:41 | Outpatient (CLI) | payer OTHER ==
--- NOTE | 2019-11-02 08:25 | MRI Report ---
Reason: WEAKNESS, LOW BACK PAIN Procedure Date: 11/01/2019 Accession Number: [id number] / [id number] Procedure: MRI - Lumbar Spine W/O CPT Code: Final Report FULL RESULT: EXAM: MRI LUMBAR SPINE WITHOUT CONTRAST EXAM DATE: 11/01/2019 02:37 PM. CLINICAL HISTORY: Weakness, low back pain. COMPARISON: None. TECHNIQUE: Multiplanar, multisequence T1-weighted and fluid-sensitive sequences of the lumbar spine from T12 to S1 without contrast. Other: None. FINDINGS: Spinal Canal: The conus terminates at L1-L2. 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 The maximum cross-sectional diameter of the fibrolipoma is approximately 3 x 2 mm. Alignment: Mild levoconvex scoliosis. Grade 1 anterolisthesis at L4-L5 by approximately 1.5 mm. Bone Marrow: Five lxm-jiu-vezarhm lumbar vertebral bodies are assumed. Minimal marrow edema at the L4 and L5 pedicles which is most likely degenerative and reactive. No acute fracture or bone lesions. Disk Levels/Facets: L5-S1: Mild to moderate disk space narrowing. Minimal disk bulge. Mild facet arthropathy. No stenoses. L4-L5: Minimal disk bulge. Moderate facet arthropathy and ligamentum flavum hypertrophy. Minimal canal narrowing. L3-L4: Unremarkable. L2-L3: Unremarkable. L1-L2: Unremarkable. T12-L1: Unremarkable. Musculature: Normal. No edema or fatty atrophy. Other: The partially visualized retroperitoneum is unremarkable. IMPRESSION: 1. Minimal disk bulge, moderate facet arthropathy, and moderate ligament flavum hypertrophy at L4-L5. Minimal canal narrowing. 2. Minimal disk bulge and mild facet arthropathy at L5-S1. No stenoses. 3. Filum terminale fibrolipoma. 4. Mild levoconvex scoliosis. Grade 1 anterolisthesis at L4-L5. Comment: The following findings are so common in adults without low back pain that while we report their presence, they must be interpreted with caution and in the context of the clinical situation. (Reference Rosi et al, Spine 2001) Prevalence of findings in patients without low back pain: Disk degeneration (any evidence): 92% Disk desiccation/T2 signal loss: 83% Disk height loss: 56% Disk bulge: 64% Disk protrusion: 32% Annular tear/high intensity zone: 38% RADIA
== END 2019-11-01 13:42 | disposition home or self-care (01) ==
LOC: DI 13:41
PROVIDERS: ATTEND Internal Medicine
DX: M51.36 Other intervertebral disc degeneration, lumbar region (principal); M48.061 Spinal stenosis, lumbar region without neurogenic claudication; M47.816 Spondylosis without myelopathy or radiculopathy, lumbar region; M51.37 Other intervertebral disc degeneration, lumbosacral region; M47.817 Spondylosis without myelopathy or radiculopathy, lumbosacral region; D17.79 Benign lipomatous neoplasm of other sites; M41.9 Scoliosis, unspecified; M43.16 Spondylolisthesis, lumbar region
CPT/HCPCS: 72148

== ENCOUNTER 2020-03-24 08:13 | Outpatient (CLI) | payer OTHER ==
--- NOTE | 2020-03-24 14:28 | MRI Report ---
PROCEDURE: Brain W/O INDICATIONS: FACIAL NUMBNESS,LEG WEAKNESS TECHNIQUE: Noncontrast axial T1 spin echo, axial T2 fast spin echo, sagittal and axial FLAIR, coronal T2 fast sp in echo, axial gradient echo, axial diffusion and ADC through the brain. COMPARISON: None. FINDINGS: Image quality: Excellent. CSF Spaces: Basal cisterns are patent. No extra-axial fluid collections. Ventricles are normal in size and shape. Brain: No intracranial masses or hemorrhage. Glass/white matter interface is normal. Brainstem appe ars normal. Diffusion-weighted images demonstrate no acute ischemic insult. No chronic ischemic ins ults. Normal intravascular flow voids are present. Minimal periventricular and subcortical white ma tter hyperintensities are present. Skull and face: Calvarium has normal marrow signal. Orbits appear normal. Sinuses: Sinuses and mastoids are clear. IMPRESSION: 1. No acute intracranial process. 2. Minimal periventricular and subcortical white matter hyperintensity suggestive of early chronic mi crovascular ischemia. Reviewed by: Gertrude Poon MD on 03/24/2020 2:26 PM PDT Approved by: Gertrude Poon MD on 03/24/2020 2:26 PM PDT Station ID: [id number]
== END 2020-03-24 08:14 | disposition home or self-care (01) ==
LOC: DI 08:13
PROVIDERS: ATTEND Psychiatry & Neurology Neurology
DX: R29.898 Other symptoms and signs involving the musculoskeletal system (principal); R20.0 Anesthesia of skin
CPT/HCPCS: 70551

== ENCOUNTER 2020-05-23 14:19 | Outpatient (CLI) | payer OTHER ==
--- NOTE | 2020-05-23 16:43 | XRAY Report ---
PROCEDURE: Hip w/Pelvis 2-3V RT INDICATIONS: R HIP PAIN TECHNIQUE: AP pelvis with lateral view(s) of the right hip(s). COMPARISON: None. FINDINGS: Bones: No fractures or dislocations. Pelvic ring appears intact. No suspicious bony lesions. Mild osseous hypertrophy noted in the right hip compatible with mild osteoarthritis. Soft tissues: The visualized bowel gas pattern is normal. No suspicious soft tissue calcifications. IMPRESSION: 1. Mild right hip osteoarthritis. 2. No acute osseous lesion. If there is continued clinical concern for pathology, then advanced imag ing (CT, MR, bone scan) should be considered for further evaluation. Reviewed by: Cassandra Ca MD, PhD on 05/23/2020 4:42 PM PST Approved by: Cassandra Ca MD, PhD on 05/23/2020 4:42 PM PST Station ID: [id number]
== END 2020-05-23 14:20 | disposition home or self-care (01) ==
LOC: DI 14:19
PROVIDERS: ATTEND Internal Medicine
DX: M16.11 Unilateral primary osteoarthritis, right hip (principal)

== ENCOUNTER 2020-06-03 13:10 | Outpatient (CLI) | payer OTHER ==
--- NOTE | 2020-06-11 08:47 | Mammography Report ---
BILATERAL DIGITAL SCREENING MAMMOGRAM 3D/2D: 06/03/2020 CLINICAL: Routine screening. No prior exams were available for comparison. The tissue of both breasts is heterogeneously dense. T his may lower the sensitivity of mammography. There is an oval equal density focal asymmetry with an indistinct and circumscribed margin in the rig ht breast at 10 o'clock middle depth. There are multiple oval equal density masses with a circumscribed margin in the left breast central t o the nipple anterior depth. There also is an oval equal density mass with a circumscribed margin in the left breast at 6 o'clock middle depth. Additionally, there is an oval equal density mass with a circumscribed margin in the left breast at 1 0 o'clock anterior depth. No other significant masses or calcifications are seen in either breast. IMPRESSION: INCOMPLETE: NEEDS ADDITIONAL IMAGING EVALUATION The oval equal density focal asymmetry in the right breast at 10 o'clock middle depth resembles a cys t and is indeterminate. An ultrasound is recommended. The multiple oval equal density masses in the left breast central to the nipple anterior depth likely represent cysts and are indeterminate. An ultrasound is recommended. The oval equal density mass in the left breast at 6 o'clock middle depth likely represents a cyst and is indeterminate. An ultrasound is recommended. The oval equal density mass in the left breast at 10 o'clock anterior depth likely represents a cyst and is indeterminate. An ultrasound is recommended. This exam was interpreted at Station ID: [id number]. NOTE: For mammograms, a report in lay terms will be sent to the patient. Approximately 15% of breast malignancies will not be visualized mammographically. In the management of a palpable breast mass, a negative mammogram must not discourage biopsy of a clinically suspicious lesion. Electronically Signed By: Fidel Carrera M.D. ddp/:06/10/2020 08:26:44 ACR BI-RADS Category 0: Incomplete 3340F PARENCHYMAL PATTERN: (D) - The breast(s) demonstrate(s) heterogeneously dense fibroglandular parfaiza singh. BI-RADS CATEGORY: (0) - 0 Ultrasound [id number] Immediate follow-up LATERALITY: (B)
== END 2020-06-03 13:11 | disposition home or self-care (01) ==
LOC: DI.N 13:10
PROVIDERS: ATTEND Internal Medicine
DX: Z12.31 Encounter for screening mammogram for malignant neoplasm of breast (principal); R92.8 Other abnormal and inconclusive findings on diagnostic imaging of breast

== ENCOUNTER 2020-07-23 09:48 | Outpatient (CLI) | payer OTHER ==
--- NOTE | 2020-07-25 09:56 | Mammography Report ---
BILATERAL DIGITAL DIAGNOSTIC MAMMOGRAM 3D/2D: 07/23/2020 CLINICAL: Additional evaluation requested from prior study. Patient returns for additional imaging ov er a suspected mass in the left breast. Comparison is made to exams dated: 06/03/2020 mammogram - [facility], 10/31/2017 felix mogram, 05/11/2017 mammogram, 05/11/2017 ultrasound, 06/22/2016 ultrasound, and 12/06/2016 mammogram - [facility]. The tissue of both breasts is heterogeneously dense. This may lower the sensitivity of mammography. Redemonstration of previously described oval equal density focal asymmetry with an obscured and circ umscribed margin in the right breast at 10 o'clock middle depth. This is not significantly changed. There are multiple oval equal density masses with a circumscribed margin in the left breast central t o the nipple anterior depth. There also is an oval equal density mass with a circumscribed margin in the left breast at 6 o'clock middle depth. Additionally, there is an oval equal density mass with a circumscribed margin in the left breast at 1 0 o'clock anterior depth. No other significant masses or calcifications are seen in either breast. IMPRESSION: INCOMPLETE: NEEDS ADDITIONAL IMAGING EVALUATION The oval equal density focal asymmetry in the right breast at 10 o'clock middle depth resembles a cys t and is indeterminate. The multiple oval equal density masses in the left breast central to the nipple anterior depth likely represent cysts and are indeterminate. The oval equal density mass in the left breast at 6 o'clock middle depth likely represents a cyst and is indeterminate. The oval equal density mass in the left breast at 10 o'clock anterior depth likely represents a cyst and is indeterminate. Bilateral ultrasound is recommended for further evaluation and is scheduled to immediately follow thi s examination. This exam was interpreted at Station ID: [id number]. NOTE: For mammograms, a report in lay terms will be sent to the patient. Approximately 15% of breast malignancies will not be visualized mammographically. In the management of a palpable breast mass, a negative mammogram must not discourage biopsy of a clinically suspicious lesion. Electronically Signed By: Mina Chamorro M.D. aty/:07/23/2020 12:26:00 ACR BI-RADS Category 0: Incomplete 3340F PARENCHYMAL PATTERN: (D) - The breast(s) demonstrate(s) heterogeneously dense fibroglandular parenchy ma. BI-RADS CATEGORY: (0) - 0 Ultrasound [id number] Immediate follow-up LATERALITY: (B)
--- NOTE | 2020-07-25 09:56 | Ultrasound Report ---
LIMITED ULTRASOUND OF RIGHT BREAST: 07/23/2020 CLINICAL: Patient returns today to evaluate a focal asymmetry in the right breast. Comparison is made to exams dated: 07/23/2020 mammogram, 06/03/2020 mammogram - [facility], 10/31/2017 mammogram, 05/11/2017 mammogram, 05/11/2017 ultrasound, and 12/06/2016 mammogram - [facility]. Color flow and real-time ultrasound of the right breast 8 o'clock region were performed. Glass scale images of the real-time examination were reviewed. There are multiple oval simple cysts in the right breast inferior lateral quadrant middle depth. The se oval simple cysts are anechoic. These correlate with mammography findings. Color flow imaging de monstrates that there is no vascularity present. IMPRESSION: BENIGN There is no sonographic evidence of malignancy. The multiple oval simple cysts in the right breast which are benign. A 1 year screening mammogram is recommended. Findings and recommendations were conveyed to the patient during today's evaluation. This exam was interpreted at Station ID: [id number]. Electronically Signed By: Mina Chamorro M.D. aty/:07/23/2020 12:33:23 Ultrasound BI-RADS: 2 Benign BI-RADS CATEGORY: (2) - 2 RECOMMENDATION: (ANNUAL) - Recommend routine annual screening mammography. [id number] 1 year screening LATERALITY: (B)
--- NOTE | 2020-07-25 09:56 | Ultrasound Report ---
LIMITED ULTRASOUND OF LEFT BREAST: 07/23/2020 CLINICAL: Patient returns today to evaluate a focal asymmetry in the left breast. Comparison is made to exams dated: 07/23/2020 mammogram, 06/03/2020 mammogram - [facility], 10/31/2017 mammogram, 05/11/2017 mammogram, 05/11/2017 ultrasound, and 12/06/2016 mammogram - [facility]. Color flow and real-time ultrasound of the left breast 3-9 o'clock region were performed. Glass scal e images of the real-time examination were reviewed. There is an oval simple cyst in the left breast at 3 o'clock anterior depth. This cyst is anechoic. This correlates with mammography findings. Color flow imaging demonstrates that there is no vascula rity present. There also are multiple oval simple cysts in the left breast inferior medial quadrant posterior depth . These oval simple cysts are anechoic. These correlate with mammography findings. Color flow imag ing demonstrates that there is no vascularity present. Additionally, there is a oval simple cyst in the left breast at 9 o'clock anterior depth. This oval cyst is anechoic with posterior acoustic enhancement. This correlates with mammography findings. Co puma flow imaging demonstrates that there is no vascularity present. IMPRESSION: BENIGN There is no sonographic evidence of malignancy. Multiple benign simple cysts correlating with mammographic findings described on recent screening ma mmogram and today's additional imaging. A 1 year screening mammogram is recommended. Findings and recommendations were conveyed to the patient during today's evaluation. This exam was interpreted at Station ID: [id number]. Electronically Signed By: Mina Chamorro M.D. aty/:07/23/2020 12:31:47 Ultrasound BI-RADS: 2 Benign BI-RADS CATEGORY: (2) - 2 RECOMMENDATION: (ANNUAL) - Recommend routine annual screening mammography. [id number] 1 year screening LATERALITY: (B)
== END 2020-07-23 09:49 | disposition home or self-care (01) ==
LOC: DI 09:48
PROVIDERS: ATTEND Internal Medicine
DX: N60.12 Diffuse cystic mastopathy of left breast (principal); N60.11 Diffuse cystic mastopathy of right breast

== ENCOUNTER 2021-02-18 12:58 | Outpatient (CLI) | payer OTHER ==
[2021-02-18] MEDS ORDERED: GADOBUTROL 15 MMOL/15 ML VIAL ONE (13:52)
[2021-02-18] MEDS ORDERED: GADOBUTROL 15 MMOL/15 ML VIAL IVP ONE (15:49)
--- NOTE | 2021-02-18 16:58 | MRI Report ---
PROCEDURE: MRCP W/WO INDICATIONS: PANCREATIC CYST TECHNIQUE: PROCEDURE: MRCP W/WO INDICATIONS: PANCREATIC CYST CONTRAST: IV CONTRAST: Gadavist ml: 8 TECHNIQUE: Coronal ultra fast SE through the abdomen, axial 2-D spoiled GE in- and [id number], and breath-hold T2 FSE with fat saturation through the biliary system and pancreas. Oblique coronal and axial thin- slice ultra fast SE, radial thick-slab ultra fast SE centered on the extrahepatic bile ducts. COMPARISON: FINDINGS: Image quality: Excellent. Pancreas and biliary system: Intra- and extra-hepatic biliary ducts are non dilated. Pancreas is no rmal in morphology, without adjacent soft tissue edema. Pancreatic duct is normal in caliber, withou t developmental anomalies. Note is made of a 2 mm high T2 signal focus at the posterior aspect of th e pancreatic head/neck junction seen best on fat-suppressed T2-weighted imaging series 501, image 24. This does not represent a 4 mm structure reported by prior MR scanning in August 2019. Gallbladder is not seen. Other solid organs: Liver and spleen are normal in size. No adrenal nodules. Both kidneys are norm al in size, without hydronephrosis. A previously identified lobulated cyst at the subcapsular right hepatic border at the junction between the anterior and posterior segments is again noted, stable ove r time. Nodes and vessels: No retroperitoneal or mesenteric adenopathy by size criteria. Aorta and inferior vena cava are normal in size. Bowel and peritoneum: Unenhanced bowel loops are normal in caliber. No free fluid. Lung bases: No basal pleural effusions. Heart size is normal. Bones and soft tissues: No ventral hernias. Bone marrow is of normal overall signal. IMPRESSION: A pancreatic mass lesion is not identified. There is no sign of pancreatic duct distention. A 2 mm sm all rounded focus of high T2 signal is seen within the pancreatic head/neck junction posteriorly, whi ch does not duplicate the finding reported from 08/14/2019 describing is a 4 mm cyst communicating wit h the main pancreatic duct. This appearance does not appear to represent a small intraductal papillar y mucinous neoplasm but given the prior report and concern in the low likelihood of IPF and as cause of this appearance a follow-up in 2 years from now would be recommended and assuming stability of fercho earance over time or further diminishment of size of the cystic structure no additional follow-up may become necessary. Reviewed by: Miguel Angel East MD on 02/18/2021 4:56 PM PDT Approved by: Miguel Angel East MD on 02/18/2021 4:56 PM PDT Station ID: [id number]
== END 2021-02-18 12:59 | disposition home or self-care (01) ==
LOC: LAB 12:58
PROVIDERS: ATTEND Internal Medicine
DX: Z79.899 Other long term (current) drug therapy (principal); K86.2 Cyst of pancreas; R93.3 Abnormal findings on diagnostic imaging of other parts of digestive tract
CPT/HCPCS: 36415; 74183; 82565; A9585

== ENCOUNTER 2021-04-29 12:47 | Outpatient (CLI) | payer OTHER ==
--- NOTE | 2021-04-29 13:29 | Ultrasound Report ---
PROCEDURE: Duplex Ext Veins Left INDICATIONS: LLE EDEMA TECHNIQUE: Real-time imaging, as well as color and pulse Doppler interrogation, were performed of the lower extr emity deep veins from the inguinal ligament to the popliteal fossa. COMPARISON: None. FINDINGS: VASCULATURE: Normal spontaneous flow and phasicity, augmentation and waveforms, and compressibility o f the vessels from the common femoral veins through the calf veins. Incidentally, venous reflux is seen in the common femoral vein. SOFT TISSUES: No acute abnormality. IMPRESSION: 1.No sonographic evidence of deep venous thrombus. Reviewed by: Raza Nelson MD on 04/29/2021 1:28 PM PDT Approved by: Raza Nelson MD on 04/29/2021 1:28 PM PDT Station ID: [id number]
== END 2021-04-29 12:48 | disposition home or self-care (01) ==
LOC: DI 12:47
PROVIDERS: ATTEND Internal Medicine
DX: R60.0 Localized edema (principal)

== ENCOUNTER 2021-06-18 08:14 | Outpatient (CLI) | payer OTHER ==
--- NOTE | 2021-06-18 08:58 | DEXA Report ---
PROCEDURE: Dexa Spine and/or Hip INDICATIONS: MENOPAUSAL TECHNIQUE: Dual energy x-ray absorptiometry (DXA) was performed on a [employer] System. Regions measur ed are the AP Spine, femoral neck, and if needed forearm. COMPARISON: None. FINDINGS: Lumbar Spine: Bone Mineral Density 1.027 g/cm/cm,T score -1.3, osteopenia Left Hip: Bone Mineral Density 0.879 g/cm/cm,T score -1.0, normal Left Femoral Neck: Bone Mineral Density 0.826 g/cm/cm, T score -1.5, osteopenia (T score greater or equal to -1.0: NORMAL) (T score from -1.1 to -2.4: OSTEOPENIA) (T score less than or equal to -2.5 to: OSTEOPOROSIS) Impression: Bone mineral density consistent with osteopenia Patients with diagnosis of osteoporosis or osteopenia should have regular bone mineral density assess ment. For those eligible for Medicare, routine testing is allowed once every 2 years. Testing frequ ency can be increased for patients who have rapidly progressing disease or for those who are receivin g medical therapy to restore bone mass. Reviewed by: Tavares Bird on 06/18/2021 8:57 AM PST Approved by: Tavares Bird on 06/18/2021 8:57 AM PST Station ID: [id number]
== END 2021-06-18 08:15 | disposition home or self-care (01) ==
LOC: DI 08:14
PROVIDERS: ATTEND Nurse Practitioner Family
DX: M85.89 Other specified disorders of bone density and structure, multiple sites (principal); Z78.0 Asymptomatic menopausal state

== ENCOUNTER 2021-08-05 15:32 | Outpatient (CLI) | payer OTHER ==
--- NOTE | 2021-08-06 08:42 | Mammography Report ---
BILATERAL DIGITAL SCREENING MAMMOGRAM 3D/2D: 08/05/2021 CLINICAL: Routine screening. Comparison is made to exams dated: 07/23/2020 ultrasound, 07/23/2020 ultrasound, 07/23/2020 mammogram, 06/03/2020 mammogram - [facility], 10/31/2017 mammogram, and 05/11/2017 mammogram - [facility]. The tissue of both breasts is heterogeneously dense. This may lower the sensitivity of mammography. There are stable benign cysts in both breasts. No significant masses, calcifications, or other findings are seen in either breast. There has been no significant interval change. IMPRESSION: BENIGN There is no mammographic evidence of malignancy. A 1 year screening mammogram is recommended. This exam was interpreted at Station ID: [id number]. NOTE: For mammograms, a report in lay terms will be sent to the patient. Approximately 15% of breast malignancies will not be visualized mammographically. In the management of a palpable breast mass, a negative mammogram must not discourage biopsy of a clinically suspicious lesion. Electronically Signed By: Tavares Bird acr/penrad:08/05/2021 16:13:48 ACR BI-RADS Category 2: Benign Finding(s) 3342F PARENCHYMAL PATTERN: (D) - The breast(s) demonstrate(s) heterogeneously dense fibroglandular parbeckyy francisco. BI-RADS CATEGORY: (2) - 2 RECOMMENDATION: (ANNUAL) - Recommend routine annual screening mammography. [id number] 1 year screening LATERALITY: (B)
== END 2021-08-05 15:33 | disposition home or self-care (01) ==
LOC: DI.N 15:32
PROVIDERS: ATTEND Internal Medicine
DX: Z12.31 Encounter for screening mammogram for malignant neoplasm of breast (principal)

== ENCOUNTER 2021-10-23 10:02 | Outpatient (CLI) | payer OTHER ==
[2021-10-23 16:37] LABS: THYROID STIMULATING HORMONE 2.22 uIU/mL (0.34-5.60)
== END 2021-10-23 23:59 | disposition home or self-care (01) ==
LOC: LAB.R 10:02
PROVIDERS: ATTEND Internal Medicine
DX: R10.13 Epigastric pain (principal); R60.9 Edema, unspecified; R27.8 Other lack of coordination; R41.89 Other symptoms and signs involving cognitive functions and awareness
CPT/HCPCS: 81599; 82607; 83880; 84443; 86780

== ENCOUNTER 2021-11-11 14:19 | Outpatient (CLI) | payer OTHER ==
[2021-11-11 14:42] LABS: BASOPHILS % (AUTO) 0.4 %; EOSINOPHILS # (AUTO) 0.1 10^3/uL (0.0-0.7); EOSINOPHILS % (AUTO) 0.9 %; HGB - HEMOGLOBIN 14.2 g/dL (12.0-16.0); LYMPHOCYTES # (AUTO) 0.8 10^3/uL (1.5-3.5); MEAN CORPUSCULAR HEMOGLOBIN 29.4 pg (27.0-31.0); MEAN PLATELET VOLUME 9.3 fL (7.9-10.8); MONOCYTES # (AUTO) 0.3 10^3/uL (0.0-1.0); MONOCYTES % (AUTO) 6.3 %; NEUTROPHILS # (AUTO) 4.1 10^3/uL (1.5-6.6); NEUTROPHILS % (AUTO) 76.8 %; PLT - PLATELET COUNT 262 10^3/uL (130-450); RED BLOOD COUNT 4.83 10^6/uL (4.20-5.40); RED CELL DISTRIBUTION WIDTH 13.6 % (12.0-15.0); WHITE BLOOD COUNT 5.4 x10^3/uL (4.8-10.8)
[2021-11-11 14:50] LABS: BILIRUBIN,URINE NEGATIVE (NEGATIVE); GLUCOSE, URINE (UA) NEGATIVE (NEGATIVE); KETONES,URINE (UA) NEGATIVE (NEGATIVE); LEUKOCYTE ESTERASE, URINE NEGATIVE (NEGATIVE); NITRITE,URINE NEGATIVE (NEGATIVE); OCCULT BLOOD,URINE TRACE-INTA (NEGATIVE); PH,URINE 5.5 PH (5.0-7.5); PROTEIN,URINE NEGATIVE (NEGATIVE); UROBILINOGEN,URINE 0.2 (NORMAL) E.U./dL (NORMAL)
[2021-11-11 14:51] LABS: ALBUMIN 4.1 g/dL (3.2-5.5); ALBUMIN/GLOBULIN RATIO 1.2 (1.0-2.2); BILIRUBIN,TOTAL 0.8 mg/dL (0.2-1.0); CALCIUM 9.1 mg/dL (8.5-10.3); POTASSIUM 3.4 mmol/L (3.5-5.0); TOTAL PROTEIN 7.6 g/dL (6.7-8.2)
[2021-11-11 14:55] LABS: CLARITY,URINE CLEAR (CLEAR)
[2021-11-11 15:13] LABS: RBC,URINE 0-5 /HPF (0-5); WBC,URINE 0-3 /HPF (0-5)
[2021-11-11 15:14] LABS: BACTERIA,URINE Few /HPF (None Seen); SQUAMOUS EPITHELIAL CELL,UR FEW Squamous (<= Few)
== END 2021-11-11 14:20 | disposition home or self-care (01) ==
LOC: LAB 14:19
PROVIDERS: ATTEND Internal Medicine
DX: R50.9 Fever, unspecified (principal); R07.9 Chest pain, unspecified; R19.7 Diarrhea, unspecified; R11.2 Nausea with vomiting, unspecified
CPT/HCPCS: 36415; 80053; 81001; 82150; 83690; 85025; 87086

== ENCOUNTER 2022-04-27 11:23 | Outpatient (CLI) | payer OTHER ==
--- NOTE | 2022-04-27 13:09 | XRAY Report ---
PROCEDURE: Chest 2 View X-Ray INDICATIONS: Chest tightness. TECHNIQUE: 2 view(s) of the chest. COMPARISON: Chest radiographs 09/04/2019. FINDINGS: Lungs and pleura: No pleural effusions or pneumothorax. Lungs are clear. Mediastinum: Mediastinal contours are normal. Heart size is normal. Bones and chest wall: No suspicious bony abnormalities. Soft tissues appear unremarkable. IMPRESSION: No acute cardiopulmonary abnormality. Reviewed by: Raz Davis MD on 04/27/2022 1:07 PM PDT Approved by: Raz Davis MD on 04/27/2022 1:07 PM PDT Station ID: [id number]
--- NOTE | 2022-04-27 16:04 | XRAY Report ---
PROCEDURE: Wrist 3 View RT INDICATIONS: WRIST XRAY TECHNIQUE: 3 views of the wrist were acquired. COMPARISON: None FINDINGS: Bones: No fractures or dislocations. No suspicious bony lesions. Extensive surgical change demonst rating ulnar prosthesis as well as distal radial ORIF. There is fusion of the radiocarpal joint as we ll as multiple carpal bones. Diffuse osteopenia is present. Soft tissues: No suspicious soft tissue calcifications. IMPRESSION: Diffuse postsurgical and fusion changes as above. Reviewed by: Gertrude Poon MD on 04/27/2022 4:03 PM PDT Approved by: Gertrude Poon MD on 04/27/2022 4:03 PM PDT Station ID: [id number]
== END 2022-04-27 11:24 | disposition home or self-care (01) ==
LOC: DI 11:23
PROVIDERS: ATTEND Internal Medicine
DX: R07.89 Other chest pain (principal); M79.641 Pain in right hand

== ENCOUNTER 2022-11-09 08:18 | Outpatient (CLI) | payer MEDICARE ==
--- NOTE | 2022-11-10 10:55 | Mammography Report ---
BILATERAL DIGITAL SCREENING MAMMOGRAM 3D/2D: 11/09/2022 CLINICAL: Routine screening. Comparison is made to exams dated: 08/05/2021 mammogram, 07/23/2020 mammogram, 06/03/2020 mammogram - [facility], 10/31/2017 mammogram, 05/11/2017 mammogram, and 12/06/2016 mammogram - [facility]. Both breasts are heterogeneously dense, which may obscure small masses (category c / 51-75% glandular tissue). There are stable benign cysts in both breasts. No significant masses, calcifications, or other findings are seen in either breast. There has been no significant interval change. IMPRESSION: BENIGN There is no mammographic evidence of malignancy. A 1 year screening mammogram is recommended. Based on the Tyrer Cuzick model (a risk assessment model) the patients lifetime risk is 9.9% and her 10 year risk is 5.2%. According to the ACR, ACS, and NCCN guidelines, an annual breast MRI exam leeann g with mammogram is recommended if the patients lifetime risk is 20% or greater. This exam was interpreted at Station ID: [id number]. NOTE: For mammograms, a report in lay terms will be sent to the patient. Approximately 15% of breast malignancies will not be visualized mammographically. In the management of a palpable breast mass, a negative mammogram must not discourage biopsy of a clinically suspicious lesion. Electronically Signed By: Mina interiano/alicia:11/09/2022 09:40:36 letter sent: No_Letter ACR BI-RADS Category 2: Benign Finding(s) 3342F PARENCHYMAL PATTERN: (D) - The breast(s) demonstrate(s) heterogeneously dense fibroglandular parenchy ma. BI-RADS CATEGORY: (2) - 2 Mammogram [id number] 1 year screening LATERALITY: (B)
== END 2022-11-09 08:19 | disposition home or self-care (01) ==
LOC: DI 08:18
PROVIDERS: ATTEND Internal Medicine
DX: Z12.31 Encounter for screening mammogram for malignant neoplasm of breast (principal)

== ENCOUNTER 2023-02-28 12:45 | Outpatient (CLI) | payer OTHER ==
--- NOTE | 2023-02-28 16:56 | MRI Report ---
PROCEDURE: MRCP W/WO INDICATIONS: PANCREATIC CYST CONTRAST: gadavist 7.7ml TECHNIQUE: Coronal ultra fast SE through the abdomen, axial 2-D spoiled GE in- and [id number], and breath-hold T2 FSE with fat saturation through the biliary system and pancreas. Oblique coronal and axial thin- slice ultra fast SE, radial thick-slab ultra fast SE centered on the extrahepatic bile ducts. COMPARISON: MRCP 02/18/2021 FINDINGS: Gallbladder: Surgically absent. Biliary tree: No intrahepatic or extrahepatic dilation. No filling defects within the common bile mo t. Pancreas: No main ductal dilation. 3 mm cyst at the pancreatic body (series 6 image 7), unchanged. Lung bases: Unremarkable. Liver: No solid mass. Spleen: No splenomegaly. Adrenals: No adrenal nodule. Kidneys and ureters: No hydronephrosis. No renal cystic lesion which requires follow up. Bowel and peritoneum: No bowel distension. No pathologic free fluid. Lymph nodes: No central or retroperitoneal adenopathy. Vessels: No infrarenal aortic aneurysm. Bones: No aggressive osseous abnormality. IMPRESSION: No significant change in the previously demonstrated subcentimeter cyst at the pancreatic body. This may represent a small sidebranch IPMN but other cystic neoplasms are not excludable. Consider imaging follow-up in 1-2 years or other interval at clinical discretion. Reviewed by: Raz Davis MD on 02/28/2023 4:54 PM PDT Approved by: Raz Davis MD on 02/28/2023 4:54 PM PDT Station ID: [id number]
== END 2023-02-28 12:46 | disposition home or self-care (01) ==
LOC: LAB 12:45
PROVIDERS: ATTEND Internal Medicine
DX: K86.2 Cyst of pancreas (principal); Z79.899 Other long term (current) drug therapy
CPT/HCPCS: 36415; 74183; 82565; A9585

== ENCOUNTER 2023-12-21 14:27 | Emergency (ER) | payer OTHER ==
--- NOTE | 2023-12-21 14:55 | ED Physician Documentation ---
PD HPI URI - Stated complaint Stated Complaint: COUGH,FEVER,SOA - Chief complaint Chief Complaint: Resp - History obtained from History obtained from: Patient - History of Present Illness Timing - onset: How many days ago (3) Timing duration: Days (3) Timing details: Abrupt onset, Still present Associated symptoms: Fever, Chills, Nasal congestion, Productive cough, Dyspnea, NVD (nausea and vomiting without diarrhea.) Contributing factors: Sick contact (COVID) Review of Systems Constitutional: reports: Fever, Chills, Myalgias Cardiac: denies: Chest pain / pressure Respiratory: reports: Dyspnea, Cough, Wheezing PD PAST MEDICAL HISTORY - Past Medical History Cardiovascular: Hypertension Respiratory: Sleep apnea, Other (chronic bronchitis) Neuro: None Endocrine/Autoimmune: None GI: GERD, Hiatal hernia : None Psych: Depression, Post traumatic stress disorder, Other Musculoskeletal: Osteoarthritis, Fibromyalgia, Chronic back pain Derm: None - Past Surgical History Past Surgical History: Yes General: Hiatal hernia repair Ortho: Other HEENT: Tonsil/Adenoidectomy - Present Medications Home Medications: Ambulatory Orders Medication Instructions Recorded Confirmed Atorvastatin [Lipitor] 40 mg PO DAILY 12/30/18 01/01/19 Calcium Carbonate/Vitamin D3 1 tab PO BID 12/30/18 12/31/18 [Calcium 600-Vit D3 400 Tablet] Famotidine 20 mg PO DAILY 12/30/18 12/31/18 Propranolol [Inderal] 20 mg PO BID 12/30/18 12/30/18 buPROPion [Wellbutrin Xl] 450 mg PO DAILY 12/30/18 12/30/18 busPIRone [Buspar] 10 mg PO BID 12/30/18 12/30/18 hydroCHLOROthiazide 25 mg PO DAILY 12/30/18 12/31/18 [Hydrochlorothiazide] Ondansetron Odt [Zofran] 4 mg TL Q6H PRN #10 tablet 01/01/19 oxyCODONE/ACET 5/325 [Percocet 5 1 each PO Q4-6H #20 tablet 01/01/19 mg/325 mg] Ondansetron Odt [Zofran] 4 mg TL Q6H PRN #15 tablet 12/21/23 Promethazine [Phenergan] 25 mg PO Q6H PRN #12 tab 12/21/23 dexAMETHasone [Decadron] 4 mg PO DAILY #5 tablet 12/21/23 - Allergies Allergies/Adverse Reactions: Allergies Allergy/AdvReac Type Severity Reaction Status Date / Time metronidazole [From Flagyl] Allergy Anaphylaxis Verified 12/21/23 14:35 Penicillins Allergy Anaphylaxis Verified 12/21/23 14:35 - Social History Does the pt smoke?: No Smoking Status: Never smoker Does the pt drink ETOH?: No Does the pt have substance abuse?: No - Immunizations Immunizations are current?: Yes - POLST Patient has POLST: No PD ED PE NORMAL - Vitals Vital signs reviewed: Yes - General General: Alert and oriented X 3, No acute distress, Well developed/nourished - HEENT HEENT: Pharynx benign - Neck Neck: Supple, no meningeal sign, No adenopathy - Cardiac Cardiac: RRR, No murmur - Respiratory Respiratory: No respiratory distress. No: Clear bilaterally (no coarse sounds but does have some scattered exp wheezing. ) - Abdomen Abdomen: Soft, Non tender - Derm Derm: Normal color, Warm and dry Results - Vitals Vitals: Vital Signs - 24 hr 12/21/23 12/21/23 12/21/23 14:31 14:34 15:44 Temperature 36.3 C L 36.0 C L Heart Rate 105 H 70 96 Respiratory 18 20 22 Rate Blood Pressure 144/94 H 141/80 H O2 Saturation 98 96 Oxygen O2 Source Room air - Labs Labs: Laboratory Tests 12/21/23 14:37 Nasal Adenovirus (PCR) NOT DETECTED Nasal B. parapertussis DNA (PCR) NOT DETECTED Nasal Coronavir 229E PCR NOT DETECTED Nasal Coronavir HKU1 PCR NOT DETECTED Nasal Coronavir NL63 PCR NOT DETECTED Nasal Coronavir OC43 PCR NOT DETECTED Nasal Enterovir/Rhinovir PCR NOT DETECTED Nasal Influenza B PCR NOT DETECTED Nasal Influenza A PCR NOT DETECTED Nasal Parainfluen 1 PCR NOT DETECTED Nasal Parainfluen 2 PCR NOT DETECTED Nasal Parainfluen 3 PCR NOT DETECTED Nasal Parainfluen 4 PCR NOT DETECTED Nasal RSV (PCR) NOT DETECTED Nasal B.pertussis DNA PCR NOT DETECTED Nasal C.pneumoniae (PCR) NOT DETECTED Fredis Human Metapneumo PCR NOT DETECTED Nasal M.pneumoniae (PCR) NOT DETECTED Nasal SARS-CoV-2 (PCR) DETECTED A - Rads (name of study) cchest xray Relevant Findings:: Prelim report reviewed, EMP independent interpretation of test (no infiltrates nor acute process) PD Medical Decision Making - ED course Complexity details: reviewed results, considered differential, d/w patient Reviewed Lab Results: Exposure to ill person with COVID and now has upper respiratory symptoms and cough with dyspnea and a feeling of some wheezing. History of chronic bronchitis so uses an inhaler moderately regularly. Does not have any maintain medicines such as inhaled steroids etc. She does have some scattered wheezes and a prolonged expiratory phase though not in distress. Able to talk complete sentences. Oxygenation is good. She was given puffs of an inhaler albuterol with a spacer and states that worked effectively to help improve her breathing. Given her to help improve her breathing. Given her chronic bronchitis, it could be reasonable to also do a short-term with some steroids. Given the short duration of her symptoms, it would seem most likely just viral and I do not see a role for antibiotics at this point. Chest x-ray was clear. The respiratory PCR test was still pending at her discharge but did come back showing COVID which was expected. Nursing call to notify her of the results. We did have a discussion about the lower effectiveness of Paxlovid etc. and the main side effects being nausea which she already has significantly. She did opt to forego any antiviral medicines. Main focus would be on symptoms with the inhaler, steroid, nausea medicines. Departure - Departure Disposition: 01 Home, Self Care Clinical Impression: Viral URI with cough, Chronic bronchitis, Nausea and vomiting, COVID-19 Condition: Stable Record reviewed to determine appropriate education?: Yes Follow-Up: Alina Belle MD [Primary Care Provider] - Prescriptions: dexAMETHasone [Decadron] 4 mg PO DAILY #5 tablet Promethazine [Phenergan] 25 mg PO Q6H PRN #12 tab PRN Reason: Nausea / Vomiting Ondansetron Odt [Zofran] 4 mg TL Q6H PRN #15 tablet PRN Reason: Nausea / Vomiting Comments: Try Zofran/ondansetron for nausea. It is a dissolving tablet and can be used every 4-6 hours. If this works well enough then great. Otherwise if it is inadequate relief of the nausea, you could add promethazine/Phenergan as well. Use your albuterol inhaler at home with a spacer 2 puffs 3-4 times daily to help with your breathing. Given your chronic bronchitis, there is likely some level of inflammation through the airways and bronchioles all the time this will certainly get triggered by a current infection. We can try to blunt that with a steroid anti- inflammatory. Decadron 4 mg daily for the next several days. Your chest x-ray is clear without any signs of pneumonia. Obviously still have the bronchial symptoms. The viral panel test has not yet resulted but given your proximity with other people with COVID recently that is going to be the most likely culprit. We can call with the results as they come back later. The antiviral medicines for COVID are not as effective on the latest variations. Also its most useful in the first couple of days. The side effect of the Paxlovid is largely nausea and upset stomach which you already have from the illness. As such I am not too inclined to prescribe the antiviral medicine for you as the benefit is minimal. Stay well-hydrated. Recheck if not improving well over the next few days. If you have persistent cough, increased sputum, worsen breathing, etc. then it is possible to get a bacterial component to the bronchial irritation on top of a viral infection. Recheck if you are worsening and not improving over the next several days to week. I sent your prescriptions to the [facility] pharmacy here in [place]. Forms: PCP List Discharge Date/Time: 12/21/23 15:44
[2023-12-21] MEDS: ONDANSETRON ODT 4 MG TABLET TL STA (15:20)
[2023-12-21] MEDS: dexAMETHasone 4 MG TABLET PO STA (15:20)
--- NOTE | 2023-12-21 15:23 | XRAY Report ---
PROCEDURE: Chest 2V INDICATIONS: cough TECHNIQUE: 2 views of the chest were acquired. COMPARISON: Chest x-ray 04/27/2022. FINDINGS: Surgical changes and devices: None. Lungs and pleura: No pleural effusions or pneumothorax. Lungs are clear. Mediastinum: Mediastinal contours appear normal. Heart size is normal. Bones and chest wall: No suspicious bony lesions. Overlying soft tissues appear unremarkable. IMPRESSION: No acute cardiopulmonary process. Reviewed by: Gertrude Poon MD on 12/21/2023 3:22 PM PDT Approved by: Gertrude Poon MD on 12/21/2023 3:22 PM PDT Station ID: [id number]
[2023-12-21] MEDS: ALBUTEROL 1 PUFF INH STA (15:31)
[2023-12-21 15:54] VITALS: BP 141/80; O2SAT 96
[2023-12-21 16:00] LABS: B. PARAPERTUSSIS- RESP PCR PAN NOT DETECTED; B. PERTUSSIS- RESP PCR PANEL NOT DETECTED; C. PNEUMONIAE- RESP PCR PANEL NOT DETECTED; CORONAVIRUS 229E-RESP PCR NOT DETECTED; CORONAVIRUS HKU1-RESP PCR NOT DETECTED; CORONAVIRUS NL63-RESP PCR NOT DETECTED; CORONAVIRUS OC43-RESP PCR NOT DETECTED; HUMAN METAPNEUMOVIRUS NOT DETECTED; INFLUENZA A- RESP PCR PANEL NOT DETECTED; INFLUENZA B - RESP PCR PANEL NOT DETECTED; M. PNEUMONIAE- RESP PCR PANEL NOT DETECTED; PARAINFLUENZA VIRUS 1 NOT DETECTED; PARAINFLUENZA VIRUS 2 NOT DETECTED; PARAINFLUENZA VIRUS 3 NOT DETECTED; PARAINFLUENZA VIRUS 4 NOT DETECTED; RHINOVIRUS/ENTEROVIRUS NOT DETECTED; RSV- RESP PCR PANEL NOT DETECTED
[2023-12-21 16:02] LABS: SARS-CoV-2 -RESP PCR PANEL DETECTED
== END 2023-12-21 15:44 | disposition home or self-care (01) ==
LOC: ED 14:27
DX: U07.1 COVID-19 (principal); J42 Unspecified chronic bronchitis; J06.9 Acute upper respiratory infection, unspecified; R11.2 Nausea with vomiting, unspecified; I10 Essential (primary) hypertension; Z79.899 Other long term (current) drug therapy
CPT/HCPCS: 71046; 87633; 94640; 94664; 99284; J8540; Q0162

== ENCOUNTER 2023-12-27 18:24 | Emergency (ER) | payer OTHER ==
[2023-12-27 18:58] VITALS: BP 143/72; O2SAT 99
[2023-12-27 19:12] LABS: HGB - HEMOGLOBIN 13.5 g/dL (12.0-16.0); RED CELL DISTRIBUTION WIDTH 13.6 % (12.0-15.0)
[2023-12-27 19:15] LABS: BASOPHILS % (AUTO) 0.5 %; EOSINOPHILS % (AUTO) 1.9 %; HCT - HEMATOCRIT 41.1 % (37.0-47.0); LYMPHOCYTES % (AUTO) 26.5 %; MEAN CORPUSCULAR HEMOGLOBIN 29.6 pg (27.0-31.0); MEAN CORPUSCULAR HGB CONC 32.8 g/dL (32.0-36.0); MEAN CORPUSCULAR VOLUME 90.1 fL (81.0-99.0); MEAN PLATELET VOLUME 8.4 fL (7.9-10.8); NEUTROPHILS % (AUTO) 59.5 %; PLT - PLATELET COUNT 402 10^3/uL (130-450); RED BLOOD COUNT 4.56 10^6/uL (4.20-5.40); WHITE BLOOD COUNT 13.9 x10^3/uL (4.8-10.8)
[2023-12-27 19:18] LABS: ABNORMAL LYMPHS % (MANUAL) 0 %
[2023-12-27 19:34] LABS: ALBUMIN/GLOBULIN RATIO 1.5 (1.0-2.2); BILIRUBIN,TOTAL 0.4 mg/dL (0.2-1.0); CALCIUM 9.2 mg/dL (8.5-10.3); CREATININE 1.4 mg/dL (0.6-1.3); POTASSIUM 3.2 mmol/L (3.5-4.5); TOTAL PROTEIN 6.6 g/dL (6.4-8.9)
[2023-12-27 19:35] LABS: BAND NEUTROPHILS % (MANUAL) 1 %; LYMPHOCYTES # (MANUAL) 3.3 10^3/uL (1.5-3.5); LYMPHOCYTES % (MANUAL) 17 %; METAMYELOCYTES % (MANUAL) 3 %; MONOCYTES # (MANUAL) 1.1 10^3/uL (0.0-1.0); PLATELET ESTIMATE, MANUAL NORMAL (130-450,000) (NORMAL); PLATELET MORPHOLOGY NORMAL APPEARANCE (NORMAL); RBC MORPHOLOGY (MULTIPLE) 1+ POLYCHROMASIA (NORMAL); REACTIVE LYMPHS % (MANUAL) 7 %
[2023-12-27 19:36] LABS: DIFFERENTIAL COMMENT MANUAL DIFFERENTIAL
--- NOTE | 2023-12-27 20:02 | XRAY Report ---
PROCEDURE: Chest 2V INDICATIONS: cough TECHNIQUE: 2 views of the chest were acquired. COMPARISON: 12/21/2023. FINDINGS: Surgical changes and devices: None. Lungs and pleura: No pleural effusions or pneumothorax. Lungs are clear. Mediastinum: Mediastinal contours appear normal. Heart size is normal. Bones and chest wall: No suspicious bony lesions. Overlying soft tissues appear unremarkable. IMPRESSION: No acute cardiopulmonary process. Reviewed by: Enoch Bagley MD on 12/27/2023 8:00 PM PDT Approved by: Enoch Bagley MD on 12/27/2023 8:00 PM PDT Station ID: [id number]
== END 2023-12-27 21:49 | disposition left against medical advice (07) ==
LOC: ED 18:24
DX: Z53.21 Procedure and treatment not carried out due to patient leaving prior to being seen by health care provider (principal)
CPT/HCPCS: 36415; 80053; 85025; 85379